=== PATIENT | male | born 1945 | race Caucasian/White ===

== ENCOUNTER → 2017-03-31 | Outpatient (CLI) | payer MEDICARE, BC | END | disposition home or self-care (01) | LOC: LABPAT 15:40 | PROVIDERS: ATTEND Orthopaedic Surgery | DX: Z01.812 Encounter for preprocedural laboratory examination (principal) | CPT/HCPCS: 87070 ==

== ENCOUNTER 2017-04-19 06:27 | Inpatient (IN) | payer MEDICARE, BC ==
[2017-04-11 16:15] VITALS: BMI 28.7
--- NOTE | 2017-04-18 12:24 | HP ---
DATE OF ADMISSION: CHIEF COMPLAINT: Left knee pain. HISTORY OF PRESENT ILLNESS: Patient is a 71-year-old retired male who presents with progressive left knee pain. He has had problems for several years worsening recently. She has tried medications along with previous injection with only partial temporary relief. He notes the pain limits his normal function and activities. PAST MEDICAL HISTORY: Significant for arthritis, hypertension, and heart disease. PAST SURGICAL HISTORY: Significant for right knee arthroscopy, partial thyroidectomy along with a coronary artery bypass graft. CURRENT MEDICATIONS: 1. Aleve. 2. Alprazolam. 3. Aspirin. 4. Cialis. 5. Enalapril. 6. Niaspan. 7. Prilosec. 8. Simvastatin. 9. Wellbutrin. 10. AndroGel. 11. Temazepam. 12. Tenormin. 13. Tramadol. He denies drug allergies. FAMILY HISTORY: Significant for cancer. SOCIAL HISTORY: Negative for current tobacco or alcohol use. A 16-point review of systems otherwise reviewed and is noncontributory. On examination, the patient is approximately 6 foot 3, 240 pounds of endomorphic habitus. HEENT exam is nonfocal. Neck is supple. He has painless passive motion of his left hip. Straight leg raise is negative. Active motion left knee -12 to 110 degrees of flexion. He is tender about the medial joint line and medial patellar facet. Active motion -12 to 110 degrees. Collaterals are stable, Karishma is negative, Heron's is equivocal. She has genu varum alignment. His distal neurovascular exam appears intact in the left lower extremity. Weight-bearing, notch, lateral, and merchant views of the left knee obtained in the office show severe medial and patellofemoral compartment narrowing. IMPRESSION: 1. Left knee severe tricompartmental osteoarthrosis. 2. Increased body mass index. RECOMMENDATIONS: I talked to the patient at length regarding his treatment options. At this point, he is quite symptomatic because of pain related to his osteoarthrosis despite conservative treatment. After thorough discussion, he opts to proceed with surgery. We will plan to proceed with left total knee arthroplasty. We will institute DVT prophylaxis postoperatively. The patient underwent preoperative medical evaluation by Dr. Wade and preoperative cardiac evaluation by Dr. Avina.
[~2017-04-19 06:27] MED LIST: ACETAMINOPHEN TAB 500 MG TAB PO ONE; DEXAMETHASONE SOD PHOSPHATE 10 MG/ML 1 ML VIAL IV ONE; HYDROmorphone 1 MG/ML 1 ML SYRINGE IVP PRN; MELOXICAM 7.5 MG TAB PO ONE; MIDAZOLAM 2 MG/2 ML VIAL IV PRN; ONDANSETRON 4 MG/2 ML VIAL IVP ONE; TRANEXAMIC ACID 1,000 MG in SODIUM CHLORIDE 0.9% 100 ML IVPB ONE; ceFAZolin 2 GM in SODIUM CHLORIDE 0.9% 100 ML IVPB ONE
[2017-04-19] MEDS: LACTATED RINGERS 1,000 ML IV SCH ×2 (07:02→12:13)
[2017-04-19] MEDS ORDERED: LIDOCAINE 1% 20 ML VIAL (10MG/ML) FOR IV START INTRADERMA ONE (07:03)
[2017-04-19] MEDS ORDERED: fentaNYL (PF) 50 MCG/ML 2 ML AMP IVP ONE (07:49)
[2017-04-19] MEDS ORDERED: ROPIVACAINE 246.25 MG, EPINEPHrine 0.5 MG, KETOROLAC 30 MG, cloNIDine HCL/PF 80 MCG, WA... MISCELLANE ONE ×5 (07:55)
[2017-04-19] MEDS ORDERED: PROPOFOL 10 MG/ML 20 ML VIAL IV ONE (08:09)
[2017-04-19] MEDS ORDERED: MIDAZOLAM 2 MG/2 ML VIAL ONE (08:09)
[2017-04-19] MEDS ORDERED: ROPIVACAINE 1,100 MG, SODIUM CHLORIDE 0.9% 330 ML MISCELLANE PRN ×2 (08:25)
--- NOTE | 2017-04-19 08:32 | P.ONQ ---
Anesthesiology Proc Note - PNB - Peripheral Nerve Block Performed Left Adductor Canal Infusion Time Out Performed: Yes Indication: Acute Post-Operative Pain, Analgesia Specifically requested for management of pain by : Jesus Nettles Sedation Type: Sedate with meaningful contact maintained Preparation: Sterile Prep Position: Supine Catheter Depth at Skin (cm): 6 Catheter: Indwelling Needle Types: Other (see comment) (Pa[employer] Language [employer]k E-Cath) Needle Size: 100mm (4") Needle Gauge: 21 Technique: Ultrasound Injectate: 0.5% Ropivacaine (see comment for volume) (20) Blood Aspirated: No Pain Paresthesia on Injection Noted: No Resistance on Injection: Normal Events: Uneventful and Well Tolerated
[2017-04-19] MEDS ORDERED: ceFAZolin 3,000 MG in SODIUM CHLORIDE 0.9% IRRIGATIO 3,000 ML IRRIGATION ONE (08:43)
[2017-04-19] MEDS ORDERED: LACTATED RINGERS 1,000 ML IV ONE (09:32)
[2017-04-19] MEDS ORDERED: HYDROmorphone 1 MG/ML 1 ML SYRINGE IVP PRN ×2 (10:07)
[2017-04-19] MEDS ORDERED: NALOXONE 0.4 MG/ML 1 ML VIAL IV PRN (10:07)
[2017-04-19] MEDS ORDERED: MAGNESIUM HYDROXIDE 2,400 MG/10 ML CUP PO PRN (10:07)
[2017-04-19] MEDS ORDERED: ONDANSETRON 4 MG/2 ML VIAL IVP PRN (10:07)
[2017-04-19] MEDS ORDERED: HYDROcodone/APAP 7.5-325MG 1 EACH TAB PO PRN (10:07)
[2017-04-19] MEDS ORDERED: ACETAMINOPHEN TAB 325 MG TAB PO PRN (10:07)
--- NOTE | 2017-04-19 10:49 | XR ---
EXAMINATION TYPE: XR knee limited LT DATE OF EXAM ORDERED: 04/19/2017 HISTORY: Postop arthroplasty. COMPARISON: None. FINDINGS: A left knee arthroplasty has been performed. Prosthetic elements appear in good position. One surgical drain is in place. There is subcutaneous and intra-articular air. IMPRESSION: STATUS POST LEFT ARTHROPLASTY.
--- NOTE | 2017-04-19 10:54 | P.OP ---
Date of Procedure: 04/19/17 Preoperative Diagnosis: Severe left knee tricompartmental osteoarthrosis-primary Postoperative Diagnosis: Same Procedure(s) Performed: Left total knee arthroplasty/Cemented/cruciate retaining Implants: Depuy Attune size 9 cemented femoral component, size 8 cemented tibial component , 9 mm articular surface, 38 mm cemented patellar component. This is a cruciate retaining implant. Anesthesia: regional, local, spinal Surgeon: Jesus Nettles Application Assistant #1: Gordon Anthony Estimated Blood Loss (ml): 50 Pathology: other (Bone fragments) Indications for Procedure: The patient is a 71-year-old gentleman who presents with progressive left knee pain secondary to osteoarthrosis despite conservative measures. A discussion of the risks and benefits of operative intervention versus continued conservative measures was made with patient. He opted to proceed with surgery. Operative risks to include infection, neurovascular injury, development of blood clots, possible component loosening, possible component failure and need for subsequent procedures was discussed. Informed consent was obtained. Operative Findings: As below Description of Procedure: The patient was brought to the operating room, and after induction of spinal anesthesia, the left lower extremity was prepped and draped in normal fashion. The limb was elevated to facilitate exsanguination. The tourniquet was inflated to 270 mm marker. A longitudinal incision extending 3 finger breaths above the superior pole of the patella extending to the the medial aspect the tibial tubercle was then made. The skin and subcutaneous tissues were divided sharply. Electrocautery was used for hemostasis. A medial parapatellar arthrotomy was performed. The medial soft tissues to include the superficial and deep portions of the medial collateral ligament was elevated subperiosteally. The posterior capsule was elevated posterior medially as well. The patella was everted. A portion of the retropatellar fat pad was excised sharply. The knee was flexed. The anterior cruciate ligament was sacrificed. Blunt retractors were placed. A starting hole was made in the distal femur 1 cm anterior to the posterior cruciate ligament origin. An intramedullary guide was gently inserted planning on 5 valgus distal cut with 9 mm distal resection. The cutting block was pinned in place. The distal cut was then made. The posterior referencing sizing guide was utilized. I felt size 9 was most appropriate. 3 of external rotation was built into the system and verified off the trans-epicondylar axis and the posterior condyles. The cutting block was pinned in place. The anterior, posterior, and chamfer cuts were then made. The bone fragments were removed. The notch guide was placed and the notch cut made. The size 9 trial femoral component was placed and was fully seated. There was good anterior to posterior and medial to lateral fit. The distal peg holes were drilled. The trial component was then removed. Attention was then paid towards preparing the proximal tibia. An extra medullary guide was utilized in line with the tibial shaft and second metatarsal distally. I planned on 2 mm resection from the medial compartment. 3 of posterior slope was planned. The cutting block was pinned in place. The posterior cruciate ligament was protected with a retractor. Proximal tibial cut was made in the bone removed in one fragment. The remnants of the medial and lateral menisci were excised at the capsular junction with electrocautery. The tibia sized most appropriately at size 8. The trial femoral and tibial components were placed along with a 9 mm articular surface. I was able to obtain full flexion and extension with good stability with varus and valgus stress. After several flexion and extension cycles, the tibial rotation was marked with electrocautery in line with the medial one third of the tibial tubercle. Attention was then paid towards preparing the patella. A patella reamer was utilized removing the appropriate amount of bone. The patella sized most appropriately at 38 mm per the peg holes were drilled. The trial components placed. The knee was taken through range of motion. I had good patellofemoral tracking with no hands technique. The trial components were then removed. The posterior osteophytes off the distal femur were carefully removed with a curved osteotome. The tibia was prepared in the appropriate rotation with appropriate drill and keel punch. Several additional drill holes were made in the proximal medial tibia to facilitate cement interdigitation. The bony surfaces were prepared with pulsatile lavage and dried. The flexion and extension gaps were checked and felt to be symmetric. The posterior soft tissues were injected with ropivacaine. The tibial component was cemented in placed and was fully seated. Excess cement was removed. The femoral component cemented placed and was fully seated. Excess cement was removed. The trial 9 mm articular surface was placed and the knee was put in full extension. The patella component was cemented in placed and was fully seated. After the cement had sufficiently hardened, the knee was again taken through range of motion. Again I was able to obtain full flexion and extension with good stability with varus and valgus stress. The trial articular surface was removed and the final 9 mm articular surface was placed. This was fully seated. Care was taken to avoid any soft tissue interposition. Pulsatile lavage was again utilized. The medial parapatellar arthrotomy was closed with # 2 Ethibond suture. A deep drain was placed exiting laterally. The tourniquet was deflated with approximately 75 minutes total tourniquet time. Final hemostasis was obtained with electrocautery and the second dose of IV TXA given. The subcutaneous tissues were reapproximated with interrupted 2-0 Vicryl sutures. The skin was reprepped with 3-0 subcuticular strata fix suture. Skin tape and adhesive was applied. A sterile dressing was applied. The patient was awoken from sedation and transferred to the recovery room in good condition. Blood loss was estimated 50 mL. No complications were incurred. Sponge and needle counts were correct at the end the case.
[2017-04-19] MEDS ORDERED: TEMAZEPAM 30 MG CAP PO PRN (16:20)
[2017-04-19] MEDS: ceFAZolin 2 GM in SODIUM CHLORIDE 0.9% 100 ML IVPB SCH (16:43)
[2017-04-19] MEDS: traMADol 50 MG TAB PO SCH ×3 (16:58→20:58)
[2017-04-19] MEDS: ATORVASTATIN 40 MG TAB PO SCH (17:19)
[2017-04-19] MEDS: DULoxetine HCL 60 MG CAPSULE.DR PO SCH (17:19)
[2017-04-19] MEDS: ALPRAZolam 0.5 MG TAB PO SCH (20:24)
[2017-04-19] MEDS: LISINOPRIL 20 MG TAB PO SCH (20:24)
[2017-04-19] MEDS ORDERED: SENNOSIDES-DOCUSATE SODIUM 1 EACH TAB PO SCH (21:00)
[2017-04-20] MEDS: ceFAZolin 2 GM in SODIUM CHLORIDE 0.9% 100 ML IVPB SCH (00:04)
[2017-04-20] MEDS: HYDROcodone/APAP 7.5-325MG 1 EACH TAB PO PRN ×3 (00:05→14:13)
[2017-04-20 01:00] VITALS: PULSE 59
[2017-04-20 06:34] LABS: Basophils % (A) 0 %; CH 32.2; CHCM 36.4; Eosinophils # (A) 0.1 k/uL (0-0.7); Eosinophils % (A) 1 %; HDW 2.69; HGB 12.3 gm/dL (13.0-17.5); Luc # (Auto) 0.17; Luc % (Auto) 2; Lymphocytes # (A) 1.1 k/uL (1.0-4.8); Lymphocytes % (A) 13 %; MCH 31.2 pg (25.0-35.0); MCHC 35.1 g/dL (31.0-37.0); MCV 88.9 fL (80.0-100.0); Mean Platelet Volume 7.8; Monocytes # (A) 0.8 k/uL (0-1.0); Monocytes % (A) 10 %; Neutrophils # (A) 6.2 k/uL (1.3-7.7); Neutrophils % (A) 74 %; RBC 3.94 m/uL (4.30-5.90); RDW 13.2 % (11.5-15.5); WBC 8.5 k/uL (3.8-10.6); WBC (Perox) 8.52
[2017-04-20 08:05] VITALS: BP 129/75; RESP 17; TEMP 97.9
[2017-04-20] MEDS ORDERED: ATENOLOL 50 MG TAB PO SCH (09:00)
[2017-04-20] MEDS ORDERED: FAMOTIDINE 20 MG TAB PO SCH (09:00)
[2017-04-20] MEDS ORDERED: FENOFIBRATE 160 MG TAB PO SCH (09:00)
[2017-04-20] MEDS ORDERED: RIVAROXABAN 10 MG TAB PO SCH (09:00)
--- NOTE | 2017-04-20 09:36 | P.PN ---
Progress Note - Text 0710 anesthesia POD 1. Wren is status post left TKR under spinal anesthesia with a left adductor canal catheter placed for postoperative pain relief. With 0.2% ropivacaine running at 8 mL per hour patient's VAS is 0, 2. Catheter site is intact clean and dry.
[2017-04-20] MEDS: ALPRAZolam 0.5 MG TAB PO SCH (09:50)
[2017-04-20] MEDS: DULoxetine HCL 60 MG CAPSULE.DR PO SCH (09:52)
[2017-04-20] MEDS: ATORVASTATIN 40 MG TAB PO SCH (09:52)
[2017-04-20] MEDS: LISINOPRIL 20 MG TAB PO SCH (09:54)
[2017-04-20] MEDS: traMADol 50 MG TAB PO SCH ×2 (09:58→12:55)
--- NOTE | 2017-04-20 12:46 | P.PN ---
Subjective Principal diagnosis: Status post left total knee arthroplasty Patient seen today resting in his hospital bed, he appears comfortable. His pain is well-controlled. Urinary catheters been discontinued. He denies any headaches, lightheadedness, chest pain or shortness of breath. Objective - Vital Signs Vital signs: Vital Signs Temp 97.9 F 04/20/17 08:00 Pulse 59 L 04/20/17 08:00 Resp 17 04/20/17 08:00 BP 129/75 04/20/17 08:00 Pulse Ox 96 04/20/17 08:00 Intake & Output 04/19/17 04/20/17 04/20/17 18:59 06:59 18:59 Intake Total 1701 950 240 Output Total 950 550 315 Balance 751 400 -75 Weight 104.326 kg Intake: IV 1701 Intake, IV Titration 450 Amount Lactated Ringers 1,000 ml 150 @ 50 mls/hr IV .Q20H SELAM Rx#:[id number] ceFAZolin 2 gm In Sodium 300 Chloride 0.9% 100 ml @ 100 mls/hr IVPB Q8HR SELAM Rx#:[id number] Oral 500 240 Output: Drainage 550 Left Knee 550 Urine 900 315 Uretheral (Hill) 200 Estimated Blood Loss 50 Other: Voiding Method Indwelling Catheter Indwelling Catheter Indwelling Catheter # Voids 1 - Exam Left lower extremity: Incisions clean, dry and intact. Calf is soft, no tenderness with palpation. Plantar flexion, dorsiflexion, EHL, FHL are intact. Sensory exam light touch throughout the extremities intact. Cap refills less than 2 seconds. - Labs CBC & Chem 7: 04/20/17 06:17 Labs: Abnormal Lab Results - Last 24 Hours (Table) 04/20/17 Range/Units 06:17 RBC 3.94 L (4.30-5.90) m/uL Hgb 12.3 L (13.0-17.5) gm/dL Hct 35.0 L (39.0-53.0) % Assessment and Plan Plan: Assessment: 1. Postop day #1 status post left total knee arthroplasty Plan: 1. Pain control, continue use of oral medication 2. Home therapy after discharge 3. Encourage incentive spirometer 4. Wound care was discussed with patient 5. GI and DVT prophylaxis, Xarelto 10 mg once a day 6. Medical recommendations 7. Discharge planning: Patient will be likely discharged home today Time with Patient: Less than 30
--- NOTE | 2017-04-20 12:49 | P.DS ---
Providers Date of admission: 04/19/17 06:27 Expected date of discharge: 04/20/17 Attending physician: Jesus Nettles Consults: 04/19/17 10:07 Consult Physician Routine Consulting Provider: Yonatan Silver Consult Reason/Comments: Medical Management Do you want consulting provider notified?: Already Contacted [facility] Course: Date of admission: 04/19/2017 Date of discharge: 04/20/2017 Admission diagnosis: Status post left total knee arthroplasty Discharge diagnosis: Same Attending physician: Dr. Nettles Surgical procedures: Left total knee arthroplasty Brief history: Patient is a 71-year-old male with a history of progressive primary left knee osteoarthritis. At this point patient has failed conservative treatment measures and has opted to proceed with a elective left total knee arthroplasty. Hospital course: Details of patient's surgery can be found in operative report. Patient tolerated the procedure well and was subsequently transported to orthopedic floor. Patient's orthopeidc and medical care was provided daily. Patient had daily laboratory tests performed for evaluation of overall blood counts. Patient had daily physical therapy to include strengthening range of motion as well as education with walker ambulation. Patient had daily CPM usage as part of their physical therapy program. Patient was treated with Xarelto for their postoperative DVT prophylaxis during their inpatient stay. Patient was noted to have a relatively uneventful postoperative course. Patient reported satisfactory pain control with oral pain medications by postoperative day 0. Patient showed satisfactory progress with physical therapy. Patient moved steadily through the program and had no difficulty meeting the goals by postoperative day 1. Given patient's otherwise satisfactory course and having met physical therapy goals, plan is to discharge patient home on postoperative day 1. Discharge condition/disposition: Patient will be discharged home in stable condition. Discharge medications: Instructions are given on resumption of patient's normal daily medications per primary care recommendation, in addition patient will be prescribed [place] 7.5mg/325mg, Tramadol 50mg, Colace 100mg, Pepcid 20mg, Xarelto 10mg. Discharge instructions: 1. Wound care and infection precautions, keep incision dry and covered while showering, no lotions, creams, moisturizers. No soaking, tubs, pools, hottubs. Do not scrub over the incision. 2. Weight-bear as tolerated with walker / cane until follow-up. 3. Ice and elevate when necessary. Do not exceed 20 minutes per hour with ice pack. 4. Utilize compression sleeve until seen at first follow up appointment. 5. Visiting nursing care. 6. Home physical therapy including home CPM. 7. Pain meds and anticoagulants per prescription. 8. Pain medication has potential to cause constipation. Increase oral fluid and fiber intake. Contact primary care provider if you have not had a bowel movement within 48 hours after discharge 9. No anti-inflammatory medication until discussed at first post operative visit, this including Motrin, Aleve, Mobic, Diclofenac, Aspirin. 10. Follow up in office at 2 weeks postop with Justo Anthony PA-C 11. Follow up with your primary care doctor 7-10 days after discharge. 12. Contact [facility] with any questions, . Procedures: Left total knee arthroplasty Patient Condition at Discharge: Good Plan - Discharge Summary New Discharge Prescriptions: New Rivaroxaban [Xarelto] 10 mg PO DAILY #12 tab Docusate [Colace] 100 mg PO DAILY #30 capsule Famotidine [Pepcid] 20 mg PO DAILY #30 tablet HYDROcodone/APAP 7.5-325MG [[place] 7.5] 1 - 2 each PO Q6HR PRN #60 tab PRN Reason: Pain traMADol HCl [Ultram] 50 mg PO Q6H PRN #40 tab PRN Reason: Pain Continue Rosuvastatin Calcium [Crestor] 20 mg PO DAILY Niacin [Niaspan] 1,000 mg PO DAILY Fenofibrate [Lofibra] 160 mg PO DAILY Testosterone [Androgel 1.62% Gel Pump] 1 applic TOPICAL DAILY Enalapril Maleate [Vasotec] 20 mg PO BID Atenolol [Tenormin] 50 mg PO QAM ALPRAZolam [Xanax] 0.5 mg PO BID Temazepam [Restoril] 30 mg PO HS PRN PRN Reason: sleep DULoxetine HCL [Cymbalta] 60 mg PO DAILY Discontinued Naproxen Sodium [Aleve] 220 mg PO BID PRN PRN Reason: Pain Discharge Medication List ALPRAZolam [Xanax] 0.5 mg PO BID 04/11/17 [History] Atenolol [Tenormin] 50 mg PO QAM 04/11/17 [History] Enalapril Maleate [Vasotec] 20 mg PO BID 04/11/17 [History] Fenofibrate [Lofibra] 160 mg PO DAILY 04/11/17 [History] Niacin [Niaspan] 1,000 mg PO DAILY 04/11/17 [History] Rosuvastatin Calcium [Crestor] 20 mg PO DAILY 04/11/17 [History] Temazepam [Restoril] 30 mg PO HS PRN 04/11/17 [History] Testosterone [Androgel 1.62% Gel Pump] 1 applic TOPICAL DAILY 04/11/17 [History] DULoxetine HCL [Cymbalta] 60 mg PO DAILY 04/19/17 [History] Rivaroxaban [Xarelto] 10 mg PO DAILY #12 tab 04/19/17 [Rx] Docusate [Colace] 100 mg PO DAILY #30 capsule 04/20/17 [Rx] Famotidine [Pepcid] 20 mg PO DAILY #30 tablet 04/20/17 [Rx] HYDROcodone/APAP 7.5-325MG [[place] 7.5] 1 - 2 each PO Q6HR PRN #60 tab 04/20/17 [ Rx] traMADol HCl [Ultram] 50 mg PO Q6H PRN #40 tab 04/20/17 [Rx] Follow up Appointment(s)/Referral(s): [facility], [NON-STAFF] - 1 Week Gordon Anthony PAC [PHYSICIAN [facility]UCKER] - 05/04/17 3:30 pm Lorenzo Contreras DO [Primary Care Provider] - 1 Week Ambulatory/Diagnostic Orders: Complete Blood Count w/diff [LAB.AMB] Time Frame: 3 Days, Location: Determined By Patient Patient Instructions/Handouts: Knee Replacement (DC) Activity/Diet/Wound Care/Special Instructions: pt currently has a CPM and walker at home. Orthopedic Discharge Instructions: 1. Wound care and infection precautions, keep incision dry and covered while showering, no lotions, creams, moisturizers. No soaking, pools, hot tubs. Do not scrub over incision. 2. Weight-bear as tolerated with walker / cane until follow-up. 3. Ice and elevate when necessary. Do not exceed 20 minutes per hour with ice pack. 4. Utilize compression sleeve until seen at first follow up appointment. 5. Visiting nursing care. 6. Home physical therapy including home CPM. 7. Pain meds and anticoagulants per prescription. 8. Pain medication has potential to cause constipation. Increase oral fluid and fiber intake. Contact primary care provider if you have not had a bowel movement within 48 hours after discharge. 9. No anti-inflammatory medication until discussed at first post operative visit, this including Motrin, Aleve, Mobic, Diclofenac. 10. Follow up in office at 2 weeks postop with Justo Anthony PA-C 11. Follow up with your primary care doctor 7-10 days after discharge. 12. Contact [facility] with any questions, . Discharge Disposition: HOME WITH HOME HEALTH SERVICES
--- NOTE | 2017-04-21 17:55 | CONS ---
REASON FOR CONSULTATION: Advice regarding hypertension, hyperlipidemia, requested by Orthopedic Surgery. HISTORY OF PRESENT ILLNESS: This 71-year-old gentleman with a past medical history of CAD, hypertension, hyperlipidemia, history of pneumonia, sleep apnea , history of CAD, CABG, being followed by Dr. Contreras in the outpatient setting, underwent left total knee arthroplasty. There is no history of any fever, rigor or chills. No history of headache, loss of consciousness, seizure, hematochezia, melena, chest pain, palpitations at this time. PAST MEDICAL HISTORY: 1. History of hypertension. 2. Hyperlipidemia. 3. History of pneumonia. 4. Sleep apnea. 5. History of CAD, CABG, cardiac catheterization. HOME MEDICATIONS: 1. Androgel 1 application daily. 2. Restoril 30 mg at bedtime p.r.n. 3. Crestor 20 mg p.o. daily. 4. Niasapn 1000 mg p.o. daily. 6. Lofibra 160 mg p.o. daily. 7. Vasotec 20 mg p.o. b.i.d. 8. Cymbalta 20 mg p.o. daily. 9. Tenormin 50 mg p.o. each morning. 10. Aspirin 81 mg daily. 11. Xanax 0.5 p.o. b.i.d. 12. Xarelto 10 mg p.o. daily. ALLERGIES: NONE. FAMILY HISTORY: History of hypertension, DJD, CABG in the family. SOCIAL HISTORY: No history of smoking. No history of alcohol. REVIEW OF SYSTEMS: ENT: No diminished hearing. No diminished vision. CARDIOVASCULAR: No angina, palpitations. RESPIRATORY: As mentioned earlier. GI: As mentioned earlier. : No dysuria, retention. NERVOUS SYSTEM: No numbness, weakness. ALLERGY/IMMUNOLOGY: No asthma, hayfever. HEMATOLOGY/ONCOLOGY: As mentioned earlier. ENDOCRINE: History of diabetes. CONSTITUTIONAL: As mentioned earlier. DERMATOLOGY: Negative. RHEUMATOLOGY: Negative. PSYCHIATRY: As mentioned earlier. PHYSICAL EXAM: Patient is alert and oriented x3. Pulse 59. Blood pressure is 132 /82, respiration 20, temperature normal. Pulse ox is 96% on room air. HEENT: Conjunctivae normal. Oral mucosa moist. NECK: No jugular venous distention. No carotid bruit. No lymph node enlargement. No thyroid enlargement. CARDIOVASCULAR: S1, S2 muffled. RESPIRATION: Breath sounds diminished at the bases. No rhonchi. No crackles. ABDOMEN: Soft, non-tender. No mass palpable. LEGS: Status post left knee arthroplasty. NERVOUS SYSTEM: Higher functions as mentioned earlier. Moves all 4 limbs. No focal motor or sensory deficit. LYMPHATICS: No lymph node palpable in neck, axillae or groin. SKIN: No ulcer, rash, bleeding. NEUROLOGY: No focal deficit. LABS: CBC, BMP within normal limits. ASSESSMENT: 1. Status post left total knee joint arthroplasty. 2. History of coronary artery disease. 3. Hypertension. 4. Hyperlipidemia. 5. History of pneumonia. 6. History of varicose veins. 7. History of goiter. 8. Hypothyroidism. 9. History of coronary artery disease, coronary artery bypass grafting. 10. History of anxiety, depression not otherwise specified. 11. FULL CODE. RECOMMENDATIONS AND DISCUSSION: In this 71-year-old gentleman who presented with multiple complex medical issues, we will monitor the patient closely, continue the current medications, continue with symptomatic treatment. I recommend labs, DVT prophylaxis, resume the home medications. Symptomatic treatment of the pain. Further recommendations to follow. MTDD
--- NOTE | 2017-04-23 10:06 | PN ---
DATE OF SERVICE: 04/20/2017 This 79 year old gentleman who was admitted with left total knee arthroplasty improved significantly. No chest pain. No palpitations. No fever. The patient was able to ambulate. On examination, alert and oriented times three. Pulse 59. Blood pressure 120/ 74. Respiratory rate 20. Temperature 97.7. Pulse ox 97% on room air. HEENT: Conjunctivae normal. NECK: No JVD. CARDIOVASCULAR: S1, S2 muffled. RESPIRATORY: Breath sounds diminished at the bases. No rhonchi. No crackles. ABDOMEN: soft, nontender. LEGS: Status post left knee arthroplasty. NERVOUS SYSTEM: No focal deficits. LABS: WBC 8.7, hemoglobin 12.7. ASSESSMENT: 1. Status post left total knee arthroplasty. 2. Anemia, normocytic, possible dilutional. 3. History of coronary artery disease. 4. History of hypertension. 5. Hyperlipidemia. 6. Sleep apnea. 7. History of coronary artery disease, coronary artery bypass grafting. 8. Anxiety, depression, not otherwise specified. 9. FUL L CODE. RECOMMENDATIONS: This 71 year old gentleman presented with multiple medical issues. At this time, I would recommend to continue current medications. Continue with symptomatic treatment. Continue monitor blood sugars closely. Otherwise, continue the home medications. The patient is being discharged home , I would recommend follow up closely with primary care physician in the outpatient setting. Otherwise, the rest of the recommendations per orthopedic surgery. See orders for further details. MTDD
== END 2017-04-20 15:14 | disposition home health service (06) | DRG 470 ==
LOC: 2ORMAIN 06:27 → 3SUR 10:34
PROVIDERS: ADMIT Orthopaedic Surgery; ATTEND Orthopaedic Surgery
PROC: 0SRD0J9 Replacement of Left Knee Joint with Synthetic Substitute, Cemented, Open Approach (ICD-10-PCS; principal; 2017-04-19 08:00)
DX: M17.12 Unilateral primary osteoarthritis, left knee (principal); I10 Essential (primary) hypertension; E03.9 Hypothyroidism, unspecified; E78.5 Hyperlipidemia, unspecified; G47.30 Sleep apnea, unspecified; I25.10 Atherosclerotic heart disease of native coronary artery without angina pectoris; M21.162 Varus deformity, not elsewhere classified, left knee; Z79.01 Long term (current) use of anticoagulants; Z79.82 Long term (current) use of aspirin; Z79.899 Other long term (current) drug therapy; Z82.49 Family history of ischemic heart disease and other diseases of the circulatory system; Z87.01 Personal history of pneumonia (recurrent); Z95.1 Presence of aortocoronary bypass graft
CPT/HCPCS: 85025; 88300

== ENCOUNTER → 2018-06-22 | Outpatient (CLI) | payer MEDICARE, BC ==
--- NOTE | 2018-06-22 12:37 | SFUN ---
SLEEP CENTER FOLLOW UP NOTE DATE OF SERVICE: 06/22/2018 A 72-year-old gentleman has been followed in the sleep center for treatment of obstructive sleep apnea-hypopnea syndrome. Presently, patient is on treatment with CPAP and he is using equipment every night for the whole night. He increased his weight around 12 pounds since previous visit and feels that pressure may not be enough for him now. He also has jerking movements at night. I reviewed his previous CPAP titration and it showed extremely severe periodic limb movements of 156 per hour, but with small amount of microarousals related to limb movements. Patient sometimes feels sleepy during the day. [place] Sleepiness Scale increased to 13. I checked his CPAP unit. CPAP pressure is 10 cm of water. Usage is 29 out of 30 nights for more than 4 hours. Average usage is around 7.9 hours. MEDICATIONS: Cialis, Vasotec, Tenormin, Crestor, TriCor, Niaspan, Prilosec, Restoril, Cymbalta, Xanax, AndroGel, aspirin. The patient also takes medication for the leg movements. He does not remember the name. PHYSICAL EXAMINATION: During physical exam, patient in no distress. VITAL SIGNS: BP 136/89, HR 60, RR 16, height 6 feet 0 inches, weight 246, BMI 33.3. Neck 18 inches in circumference. Temperature 98.5. Oxygen saturation in room air 98%. HEENT: PERRLA, EOMI. Oropharynx low position of soft palate. NECK: Supple, no JVD. Thyroid is not palpable. LUNGS: Clear to percussion and to auscultation. Good air exchange. No wheezing or rhonchi. HEART: S1, S2 regular. No murmurs, gallops, or rubs. ABDOMEN: Soft and nontender. Bowel sounds are present. No organomegaly appreciated. EXTREMITIES: Some distention of the veins on the low legs. SALESPERSON RECREATIONAL VEHICLES: Awake, alert, and oriented X3. Cranial nerves 2 to 7 intact. There is no fasciculation or atrophy. noted. No focal deficits observed. IMPRESSION: 1. Obstructive sleep apnea-hypopnea syndrome. Patient demonstrated great compliance with treatment, benefitting from treatment. 2. Patient increased his weight on 12 pounds since titration. Possibility that pressure in the machine is not enough for him machine does not have option to check apnea-hypopnea index. 3. Extremely severe periodic limb movements during last CPAP titration. The patient continued to have jerking movements at night, presently was started on a new medication for leg movement by his primary care physician. 4. Coronary artery disease, status post coronary artery bypass grafting. 5. Hypertension. 6. Status post total left knee replacement. 7. Hyperlipidemia. 8. Acid reflux. 9. History of anxiety. PLAN: 1. I increased pressure in his CPAP unit to 11 cm of water. 2. Patient should be treated with agonist Requip or Mirapex, smallest dose at bedtime. 3. Please check iron profile including ferritin level. Low level of iron could be related with developing periodic limb movements. 4. No driving if feeling any sleepiness. 5. Followup visit in 3 to 4 months. Thank you very much for allowing me to participate in management of your patient. Sincerely, Tal Perez MD, PhD, FAASM Diplomat of [place] [employer] Specialties [place] [employer] Medicine Lawn Care Worker of [facility] [place] MMODL / TAIWON: [id number] /
== END | disposition home or self-care (01) ==
LOC: SLEEP 10:42
PROVIDERS: ATTEND Internal Medicine
DX: G47.33 Obstructive sleep apnea (adult) (pediatric) (principal); I25.10 Atherosclerotic heart disease of native coronary artery without angina pectoris; I10 Essential (primary) hypertension; E78.5 Hyperlipidemia, unspecified; K21.9 Gastro-esophageal reflux disease without esophagitis; F41.9 Anxiety disorder, unspecified; Z95.5 Presence of coronary angioplasty implant and graft; Z99.89 Dependence on other enabling machines and devices; Z79.899 Other long term (current) drug therapy; Z79.82 Long term (current) use of aspirin

== ENCOUNTER → 2018-07-07 | Outpatient (CLI) | payer MEDICARE, BC ==
--- NOTE | 2018-07-10 00:36 | MR ---
EXAMINATION TYPE: MR ankle LT wo con DATE OF EXAM: 07/07/2018 COMPARISON: NONE HISTORY: 72-year-old female Pain in left ankle TECHNIQUE: Multiplanar, multisequence images of the left ankle were obtained without IV contrast. FINDINGS: Evaluation of the osseous structures shows no bone marrow edema or acute fracture. Subtalar joint is aligned and talar dome is intact. There is mild degenerative subchondral marrow signal change at the navicular lateral cuneiform joint. Small ankle joint effusion. There is moderate thickening of the middle third Achilles tendon with an AP diameter of 1.7 cm. There is mild adjacent soft tissue swelling and an irregular partial tear involving the mid to medial ante rior fibers measuring 9 mm thick and 1.6 cm long. Some additional small areas of interstitial tearing are present. Origin of the plantar fascia is intact. Normal signal in the sinus tarsi. The tarsal tunnel is clear. Anterior extensor tendons are satisfactory. The syndesmosis is intact. Inframalleolar peroneus brevis shows a possible split tear extending from just above the peroneal tub ercle, axial series 401 image 17 for a length of about 3 cm. Mild tenosynovial fluid along the perone al tendons. The lateral ligamentous complex appears intact. There is edematous change within the visualized lower muscle belly of the flexor hallucis longus. The medial flexor tendons themselves appear intact as does the deltoid spring ligament complex. Mild subcutaneous soft tissue swelling. IMPRESSION: 1. Moderate Achilles tendinosis particularly along the middle third segment where an anterior sided p artial tear is present involving the mid to medial third fibers and involving just over half of the t endon thickness. The partial tear measures 1.6 cm long. 2. Possible split tear of the inframalleolar peroneus brevis extending from just above the peroneal t ubercle for a length of 3 cm. 3. Mild midfoot OA. 4. Edematous change within the visualized lower muscle belly of the flexor hallucis longus could be r eactive to altered biomechanics or could represent muscle strain.
== END | disposition home or self-care (01) ==
LOC: RADMRIMAIN 08:43
PROVIDERS: ATTEND Orthopaedic Surgery
DX: S86.012A Strain of left Achilles tendon, initial encounter (principal); M19.072 Primary osteoarthritis, left ankle and foot

== ENCOUNTER → 2018-10-05 | Outpatient (CLI) | payer MEDICARE, BC ==
--- NOTE | 2018-10-05 15:57 | PN ---
PROGRESS NOTE DATE OF SERVICE: 10/05/2018 This patient is a 72-year-old gentleman who has been followed in the sleep center for treatment of obstructive sleep apnea-hypopnea syndrome. During his previous visit, I increased his CPAP pressure from 10 cm of water up to 11 cm of water. At present patient does not snore with the machine. [place] Sleepiness Scale has decreased to 9 from 13 at the previous visit. I checked patient's CPAP unit. CPAP pressure is 11 cm of water. Pressure started from 8.5 cm of water. Usage is 28/30 nights for more than 4 hours. Average usage is 8.3 hours per night. The machine does not have information about apnea-hypopnea index. MEDICATIONS: 1. Vasotec. 2. Cialis. 3. Tenormin. 4. Crestor. 5. Tricor. 6. Niaspan. 7. Prilosec. 8. Restoril. 9. Cymbalta. 10.Xanax. 11.AndroGel. 12.Aspirin. PHYSICAL EXAMINATION: GENERAL: A pleasant patient in no distress. VITAL SIGNS: BP 133/81, HR 58, R 16 height 6 feet 0 inches, weight 244.8, which is 2 pounds less than during his previous visit, temperature 97.9, oxygen saturation at room air 96%. HEENT: PERRLA, EOMI. Evaluation of oropharynx showed tongue protrudes midline. Low position of soft palate. NECK: Supple. No JVD. Thyroid is not palpable. LUNGS: Clear to percussion and to auscultation. Good air exchange. No wheezing or rhonchi. HEART: S1, S2 regular. No murmurs, gallops or rubs. ABDOMEN: Soft and nontender. Bowel sounds are present. No organomegaly. EXTREMITIES: Distention of veins in the lower legs. MOLD SETTER: Awake, alert, and oriented X3. Cranial nerves 2 to 7 intact. There is no fasciculation or atrophy. noted. No focal deficits observed. IMPRESSION: 1. Obstructive sleep apnea-hypopnea syndrome. Patient has demonstrated great compliance with treatment, benefitting from treatment. 2. Coronary artery disease, status post coronary artery bypass grafting. 3. Hypertension. 4. History of periodic limb movements in sleep during titration. 5. Status post total left knee replacement. 6. Hyperlipidemia. 7. Acid reflux. 8. History of anxiety. PLAN: 1. Patient will continue treatment with CPAP every night for the whole night. 2. We will check with [facility] equipment [email or web address] about possibility of replacing CPAP unit with a new unit which has information about apnea-hypopnea index. 3. Watching and losing weight. 4. Sleep hygiene with regular time in bed for at least 8 hours. 5. No driving if feeling any sleepiness. Thank you very much for allowing me to participate in the management of your patient. Sincerely, Tal Perez MD, PhD, FAASM Diplomat of [place] [employer] [place] [employer] Freight Delivery Driver of [facility] [place] MMODL / IJN: [id number] /
== END | disposition home or self-care (01) ==
LOC: SLEEP 13:42
PROVIDERS: ATTEND Internal Medicine
DX: G47.33 Obstructive sleep apnea (adult) (pediatric) (principal); I25.10 Atherosclerotic heart disease of native coronary artery without angina pectoris; I10 Essential (primary) hypertension; E78.5 Hyperlipidemia, unspecified; K21.9 Gastro-esophageal reflux disease without esophagitis; Z86.69 Personal history of other diseases of the nervous system and sense organs; Z86.59 Personal history of other mental and behavioral disorders; Z99.89 Dependence on other enabling machines and devices; Z95.1 Presence of aortocoronary bypass graft; Z79.82 Long term (current) use of aspirin; Z79.899 Other long term (current) drug therapy

== ENCOUNTER → 2018-12-22 | Outpatient (CLI) | payer MEDICARE, BC ==
--- NOTE | 2018-12-22 13:13 | MR ---
EXAMINATION TYPE: MR knee RT wo con DATE OF EXAM: 12/22/2018 COMPARISON: Plain film 12/15/2018 HISTORY: Right knee pain TECHNIQUE: Multiplanar, multisequence imaging of the right knee is performed without IV contrast. FINDINGS: MEDIAL MENISCUS: There is a tear of the posterior horn the medial meniscus LATERAL MENISCUS: Lateral meniscus is not identified at the posterior horn level, M.D. space is noted CRUCIATE LIGAMENTS: The distribution anterior cruciate ligament there is increased signal suggestive of strain or partial tear, posterior cruciate ligament intact COLLATERAL LIGAMENTS: The medial collateral ligament and lateral collateral ligament complex are inta ct and unremarkable. EXTENSOR MECHANISM: Visualized quadriceps and patellar tendons are intact. EFFUSION: Suprapatellar joint effusion is present. There are free fragments within the posterior kne e joint one of which measures 6 to 7 mm and the second measures approximately 7 mm. POPLITEAL CYST: No popliteal/sanderson cyst. TRICOMPARTMENT SPACES: There is loss of the joint space tricompartmentally with marginal spurring is noted on plain film CARTILAGE: Grade IV chondromalacia posterior patella, grade III chondromalacia medial compartment, gr ander IV chondromalacia lateral compartment BONE MARROW SIGNAL: No focal abnormal marrow signal is appreciated. OTHER: Varicosities are noted in the soft tissues anterior to the joint in the medial aspect extendi ng to the midline. The area margin of the patellar tendon IMPRESSION: Osteoarthritis. Tear of the posterior horn of the lateral meniscus, the meniscus. Loose bodies within the joint. Additional findings above.
== END | disposition home or self-care (01) ==
LOC: RADMRIMAIN 07:59
PROVIDERS: ATTEND Orthopaedic Surgery
DX: S83.281A Other tear of lateral meniscus, current injury, right knee, initial encounter (principal); M17.11 Unilateral primary osteoarthritis, right knee; M22.41 Chondromalacia patellae, right knee

== ENCOUNTER → 2019-02-23 | Day surgery (SDC) | payer MEDICARE, BC ==
[2019-02-21 15:53] VITALS: BMI 30.8
--- NOTE | 2019-02-22 11:49 | HP ---
HISTORY AND PHYSICAL CHIEF COMPLAINT: Right knee pain. HISTORY OF PRESENT ILLNESS: Patient is a 73-year-old retired gentleman who presents with progressive right knee pain for the past year or so. He notes pain that increases with certain movements. He notes intermittent swelling and locking. He has tried medications and an injection with only partial temporary relief. He notes his pain limits his normal function and activities. PAST MEDICAL HISTORY: Significant for arthritis, hypertension and heart disease. PAST SURGICAL HISTORY: Significant for bilateral knee arthroscopy in addition to previous CABG. CURRENT MEDICATIONS: 1. Aspirin. 2. Alprazolam. 3. Cialis. 4. Enalapril. 5. Prilosec. 6. Simvastatin. 7. Wellbutrin. 8. AndroGel. 9. Temazepam. 10.Tenormin. He denies drug allergies. FAMILY HISTORY: Significant for cancer. SOCIAL HISTORY: Negative for current tobacco or alcohol use. REVIEW OF SYSTEMS: A 16 point review of systems otherwise reviewed and is noncontributory. PHYSICAL EXAMINATION: On examination, the patient is approximately 6 foot 2, 225 pounds of endomorphic habitus. HEENT exam is nonfocal. Neck is supple. He has painless passive motion of the right hip. Straight leg raise is negative, active motion right knee -8 to 120 degrees of flexion. He has a mild effusion. He is tender about the medial, greater and lateral joint line. Collaterals are stable, Karishma is negative, Heron's elicits medial pain. He has genu valgum alignment. His distal neurovascular appears intact in the right lower extremity. MRI report 12/22/2018 of the right knee shows a posterior medial meniscal tear in addition to lateral greater than medial compartment osteoarthrosis. IMPRESSION: 1. Right knee internal derangement with symptomatic medial meniscal tear. 2. Right knee moderate lateral and patellofemoral compartment osteoarthrosis. RECOMMENDATIONS: I talked to the patient at length regarding his condition and treatment options. At this point, he is having significant pain and mechanical symptoms, despite conservative measures. After thorough discussion, he opts to proceed with surgery. Will plan to proceed with arthroscopic evaluation with possible partial medial meniscectomy. Will likely perform that as an outpatient procedure. MMODL / IJN: [id number] /
[~2019-02-23] MED LIST changes: -ACETAMINOPHEN TAB 500 MG TAB PO ONE; +EPINEPHrine (PF) 1 ML in SODIUM CHLORIDE 0.9% IRRIGATIO 3,000 ML IRRIGATION ONE; +HYDROmorphone (PF) 1 MG/ML ONE; +HYDROmorphone 0.5 MG/0.5 ML SYRINGE IVP PRN; -HYDROmorphone 1 MG/ML 1 ML SYRINGE IVP PRN; +KETOROLAC 30 MG/ML 1 ML VIAL ONE; +LACTATED RINGERS 1,000 ML IV SCH; +LIDOCAINE 1% INJ 10MG/ML (20 ML MDV) ONE; -MELOXICAM 7.5 MG TAB PO ONE; +MIDAZOLAM 2 MG/2 ML VIAL ONE; +PROPOFOL 10 MG/ML 20 ML VIAL IV ONE; +SUCCINYLCHOLINE CHLORIDE 100 MG/5 ML SYR IV ONE; -TRANEXAMIC ACID 1,000 MG in SODIUM CHLORIDE 0.9% 100 ML IVPB ONE; -ceFAZolin 2 GM in SODIUM CHLORIDE 0.9% 100 ML IVPB ONE; +fentaNYL (PF) 50 MCG/ML 2 ML AMP ONE
[2019-02-23 07:11] VITALS: RESP 16
[2019-02-23] MEDS: ceFAZolin IN SWFI 2 GM/20 ML SYRINGE IVP ONE ×2 (07:54→08:10)
--- NOTE | 2019-02-23 08:51 | P.OP ---
Date of Procedure: 02/23/19 Preoperative Diagnosis: Right knee internal derangement Postoperative Diagnosis: Right knee posterior medial meniscal tear/grade 2 chondral injury distal medial femoral condyle/chondrocalcinosis with significant synovitis Procedure(s) Performed: Right knee arthroscopic partial medial meniscectomy/medial femoral chondrectomy/synovectomy of the medial, lateral, and patellofemoral compartments Anesthesia: GETA Surgeon: Jesus Nettles Estimated Blood Loss (ml): 10 Pathology: none sent Condition: stable Disposition: PACU Indications for Procedure: The patient's a 73-year-old male presents with progressive right knee pain and mechanical symptoms despite conservative measures. A discussion of the risks and benefits of operative intervention versus continued conservative measures was made with the patient. He opted to proceed with surgery. Operative risks to include infection, neurovascular injury, development of blood clots, possible incomplete resolution of symptoms, possible worsening symptoms and need for subsequent procedures was discussed. Informed consent was obtained. Operative Findings: As below Description of Procedure: The patient was brought to the operating room, and after induction of general a nesthesia examined the right knee. Collaterals were stable, Karishma was negative, and posterior drawer was negative. The right lower extremity was prepped and draped in a normal fashion. A superior lateral portal was made through a 3 mm skin incision superior and lateral to the patella. This was used for outflow. A lateral portal was made through a 5 mm vertical skin incision lateral to the patella tendon above the joint line. Diagnostic arthroscopy was performed. On inspection of the medial compartment an oblique tear involving the posterior horn of the medial meniscus was noted. This was debrided back to stable base with straight baskets and a motorized shaver. There was chondrocalcinosis present and significant reactive synovitis. A grade 2 chondral injury involving the distal medial portion medial femoral condyle was noted with a loose chondral fragment. This was debrided back to a stable base with a motorized shaver. The reactive synovitis was debrided with a motorized shaver including the anterior medial, lateral, and patellofemoral compartments On inspection of the notch, the anterior cruciate ligament appeared to be intact. On inspection of the lateral compartment grade 3 chondral changes were noted diffusely. On inspection of the patellofemoral articulation grade 2-3 chondral changes were noted diffusely. The gutters were clear debris. The knee was then thoroughly irrigated. The portals were closed with Steri-Strips. A sterile dressing was applied in addition to a compression stocking. The patient was awoken from general anesthesia and transferred to recovery room in good condition. Blood loss was estimated at 10 mL. No complications were incurred.
[2019-02-23 08:54] VITALS: TEMP 97.3
[2019-02-23 09:46] VITALS: BP 143/88; PULSE 58
== END | disposition home or self-care (01) ==
LOC: OR 06:48
PROVIDERS: ATTEND Orthopaedic Surgery
DX: S83.241A Other tear of medial meniscus, current injury, right knee, initial encounter (principal); S83.31XA Tear of articular cartilage of right knee, current, initial encounter; X58.XXXA Exposure to other specified factors, initial encounter; M11.261 Other chondrocalcinosis, right knee; M65.9 Synovitis and tenosynovitis, unspecified; I25.10 Atherosclerotic heart disease of native coronary artery without angina pectoris; I11.9 Hypertensive heart disease without heart failure; M19.90 Unspecified osteoarthritis, unspecified site; Z95.1 Presence of aortocoronary bypass graft; I35.1 Nonrheumatic aortic (valve) insufficiency; G47.33 Obstructive sleep apnea (adult) (pediatric); Z99.89 Dependence on other enabling machines and devices; F41.9 Anxiety disorder, unspecified; F32.9 Major depressive disorder, single episode, unspecified; Z79.82 Long term (current) use of aspirin; Z79.890 Hormone replacement therapy; Z79.899 Other long term (current) drug therapy
CPT/HCPCS: 29881; J2250; J0171; J2001; J3010; J1885; J1170; J0330; J2704; J0690

== ENCOUNTER → 2019-04-12 | Outpatient (CLI) | payer MEDICARE, BC ==
--- NOTE | 2019-04-12 16:17 | PN ---
PROGRESS NOTE DATE OF SERVICE: 04/12/2019 This patient is a 73-year-old gentleman who has been followed in Sleep Center for treatment of obstructive sleep apnea-hypopnea syndrome. Recently the patient received a new CPAP unit, and this is his first visit after receiving the new machine. The patient is able to use his new CPAP equipment every night for the whole night without significant problems related to mask fitting, pressure or humidification. I checked his CPAP unit. Range of the pressure is 8 to 13 cm of water. Most of the time pressure is in the range of 11.2 cm of water. Leak is only 5 L/minute, which is perfect. Usage is 29/30 nights for more than 4 hours, average 7.9 hours per night, which is perfect. Apnea-hypopnea index is only 0.6; great. [place] Sleepiness Scale today is 8. MEDICATIONS: 1. Cialis. 2. Vasotec. 3. Tenormin. 4. Crestor. 5. TriCor. 6. Niaspan. 7. Prilosec. 8. Restoril. 9. Cymbalta. 10.Xanax. 11.AndroGel. 12.Aspirin. PHYSICAL EXAMINATION: GENERAL: A pleasant patient in no distress. VITAL SIGNS: BP 121/71, HR 62, RR 16, weight 247, temperature 97.5, oxygen saturation at room air 93%. HEENT: PERRLA, EOMI. Evaluation of oropharynx showed tongue protrudes midline. Low position of soft palate. NECK: Supple. No JVD. Thyroid is not palpable. LUNGS: Clear to percussion and to auscultation. Good air exchange. No wheezing or rhonchi. HEART: S1, S2 regular. No murmurs, gallops or rubs. ABDOMEN: Soft and nontender. Bowel sounds are present. No organomegaly. EXTREMITIES: No clubbing or cyanosis. GROUNDS FOREMAN: Awake, alert, and oriented X3. Cranial nerves 2 to 7 intact. There is no fasciculation or atrophy. noted. No focal deficits observed. IMPRESSION: 1. Obstructive sleep apnea-hypopnea syndrome. Patient has demonstrated great compliance with treatment, benefitting from treatment. Normal respiration on CPAP. 2. Hypertension. 3. Coronary artery disease, status post coronary artery bypass grafting. 4. Status post total left knee replacement. 5. Hyperlipidemia. 6. Acid reflux. 7. History of anxiety. PLAN: 1. Patient will continue to use CPAP equipment every night for the whole night. 2. Losing weight. 3. Sleep hygiene with regular time in bed for at least 8 hours. 4. No driving if feeling any sleepiness. 5. We will maintain all necessary prescriptions for CPAP, including mask, tube, filters. 6. Follow-up visit in one year or earlier if patient has any problems. Thank you very much for allowing me to participate in the management of your patient. Sincerely, Tal Perez MD, PhD, FAASM Diplomat of [place] [employer] [place] [employer] Ac[employer]ylene Gas Compressor of [facility] [place] MMODL / IJN: [id number] /
== END ==
LOC: SLEEP 13:07
PROVIDERS: ATTEND Internal Medicine
DX: G47.33 Obstructive sleep apnea (adult) (pediatric) (principal); I10 Essential (primary) hypertension; I25.10 Atherosclerotic heart disease of native coronary artery without angina pectoris; E78.5 Hyperlipidemia, unspecified; K21.9 Gastro-esophageal reflux disease without esophagitis; F41.9 Anxiety disorder, unspecified; Z99.89 Dependence on other enabling machines and devices; Z96.652 Presence of left artificial knee joint; Z95.1 Presence of aortocoronary bypass graft; Z79.899 Other long term (current) drug therapy; Z79.82 Long term (current) use of aspirin

== ENCOUNTER → 2021-04-27 | Outpatient (CLI) | payer BC, MEDICARE | END | disposition home or self-care (01) | CPT/HCPCS: 82565; 84520; 71275; 36415; Q9967 ==

== ENCOUNTER → 2022-05-12 | Outpatient (CLI) | payer MEDICARE ==
--- NOTE | 2022-05-12 16:36 | CT ---
EXAMINATION TYPE: CT chest w con DATE OF EXAM: 05/12/2022 COMPARISON: CT chest 10/30/2021 HISTORY: abnormal lung sorensen CT DLP: 622.9 mGycm Automated exposure control for dose reduction was used. CONTRAST: CT scan of the chest is performed with IV Contrast, patient injected with 70 mL of Isovue 300. FINDINGS: LUNGS: The lungs show too numerous to count lung nodules bilaterally, nodules seen are similar to max or exam, miliary pattern somewhat better seen on today's exam possibly due to differences in techniqu e, difficult to exclude progression. There is no pleural effusion or pneumothorax seen. The trache obronchial tree is patent. MEDIASTINUM: There are no greater than 1 cm hilar or mediastinal lymph nodes. No pericardial effusi on is seen. Patient is post median sternotomy. There are coronary artery calcifications. AORTA: Ascending aorta is borderline aneurysmal at 4.1 cm. Aortic root is 4.2 cm. OTHER: No additional significant abnormality is seen. IMPRESSION: Relate for possible granulomatous disease both infectious and noninfectious, tuberculosi s not excluded but felt less likely, metastatic disease within the differential but also felt less li rona.
== END | disposition home or self-care (01) ==
LOC: RADCTMAIN 12:38
PROVIDERS: ATTEND Internal Medicine Critical Care Medicine
DX: R91.8 Other nonspecific abnormal finding of lung field (principal)
CPT/HCPCS: 82565; 84520; 71260; 36415; Q9967

== ENCOUNTER 2022-10-06 17:20 | Inpatient (IN) | payer MEDICARE ==
[2022-10-06 18:26] LABS: Basophils % (A) 1 %; Eosinophils # (A) 0.4 k/uL (0-0.7); Eosinophils % (A) 7 %; HCT 40.9 % (39.0-53.0); Lymphocytes # (A) 0.8 k/uL (1.0-4.8); Lymphocytes % (A) 15 %; MCH 29.3 pg (25.0-35.0); MCHC 34.1 g/dL (31.0-37.0); MCV 85.8 fL (80.0-100.0); Mean Platelet Volume 8.6; Monocytes # (A) 0.5 k/uL (0-1.0); Monocytes % (A) 9 %; Neutrophils # (A) 3.5 k/uL (1.3-7.7); Neutrophils % (A) 65 %; Platelet Count 198 k/uL (150-450); RBC 4.77 m/uL (4.30-5.90); RDW 13.6 % (11.5-15.5); WBC 5.4 k/uL (3.8-10.6)
[2022-10-06 18:31] LABS: Albumin 4.4 g/dL (3.5-5.0); Calcium 9.2 mg/dL (8.4-10.2); Total Bilirubin 0.5 mg/dL (0.2-1.3); Total Protein 7.6 g/dL (6.3-8.2)
[2022-10-06 18:43] LABS: INR 1.1 (<1.2); Prothrombin Time 11.3 sec (9.0-12.0)
--- NOTE | 2022-10-06 18:47 | XR ---
EXAMINATION TYPE: XR chest 2V DATE OF EXAM: 10/06/2022 6:23 PM COMPARISON: Chest radiographs from CTs 05/12/2022 TECHNIQUE: XR chest 2V Frontal and lateral views of the chest. CLINICAL INDICATION:Male, 76 years old with history of pain; FINDINGS: Lungs/Pleura: Scattered subtle reticular and hazy opacities. No evidence of pneumothorax, focal conso lidation or pleural effusion. Pulmonary vascularity: Unremarkable. Heart/mediastinum: Cardiomediastinal silhouette is enlarged and stable. . Musculoskeletal: No acute osseous pathology. Midline sternotomy wires are noted. IMPRESSION: Bilateral lower lobe airspace opacities and scattered reticular and hazy opacities correlate for atyp ical pneumonia
--- NOTE | 2022-10-06 22:15 | US ---
EXAMINATION TYPE: US venous doppler duplex LE DATE OF EXAM: 10/06/2022 8:17 PM COMPARISON: NONE CLINICAL HISTORY: leg swelling. bilateral calf swelling. No hx of DVT. Takes baby aspirin daily SIDE PERFORMED: Bilateral TECHNIQUE: The lower extremity deep venous system is examined utilizing real time linear array sonog christal with graded compression, doppler sonography and color-flow sonography. VESSELS IMAGED: Common Femoral Vein Deep Femoral Vein Greater Saphenous Vein * Femoral Vein Popliteal Vein Small Saphenous Vein * Proximal Calf Veins (* superficial vessels) Right Leg: No evidence of DVT. Edema noted in calf Left Leg: No evidence of DVT. Edema noted in calf Grayscale, color doppler, spectral doppler imaging performed of the deep veins of the bilateral lower extremities. There is normal flow, compressibility, vascular waveforms. IMPRESSION: No evidence of acute DVT in either lower extremity. [id number] distal subcutaneous edema is noted.
[2022-10-06] MEDS ORDERED: AZITHROMYCIN 500 MG in SODIUM CHLORIDE 0.9% 250 ML IVPB STA (22:16)
[2022-10-06] MEDS ORDERED: IPRATROPIUM-ALBUTEROL 3 ML NEB INHALATION STA (22:22)
--- NOTE | 2022-10-06 22:22 | ED ---
General Adult HPI - General Chief complaint: Recheck/Abnormal Lab/Rx Stated complaint: SOB, Atrial Fib Time Seen by Provider: 10/06/22 19:58 Source: patient Mode of arrival: ambulatory Limitations: no limitations - History of Present Illness Initial comments: This 76-year-old male presents with complaint of some difficulty in breathing. He states that this is been for over 3 weeks. He was coughing quite a bit but not significantly over the past week. He denies any fevers or chills. There is been no chest pain. She was seen by primary care today for the difficulty in breathing. They thought that his heart rate was low and that he may have new- onset atrial fibrillation so sent him for further evaluation here this is as per patient and . He does complain of lower extremity edema worse on the right leg but does relate having a vascular procedure for varicose veins done 6 months ago by vascular surgeon out of [facility]. He's had swelling to his legs since then but it seems somewhat worse recently. He has exertional d yspnea. He denies any orthopnea. There is no history of congestive heart failure although he did have a history of a coronary artery bypass graft 14 years ago. 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 He does have a history of pulmonary nodules but otherwise denies any COPD or asthma. No other identifiable complaints or modifying factors. - Related Data Home Medications Medication Instructions Recorded Confirmed ALPRAZolam [Xanax] 0.5 mg PO BID PRN 04/11/17 10/06/22 Enalapril Maleate [Vasotec] 20 mg PO BID 04/11/17 10/06/22 Fenofibrate [Lofibra] 160 mg PO DAILY 04/11/17 10/06/22 Testosterone [Androgel 1.62% Gel 3 pump TOPICAL DAILY 04/11/17 10/06/22 Pump] Omeprazole [PriLOSEC] 20 mg PO DAILY PRN 02/22/19 10/06/22 Metoprolol Succinate (ER) [Toprol 50 mg PO HS 10/06/22 10/06/22 Xl] Niacin [Niacin ER] 500 mg PO HS 10/06/22 10/06/22 Pravastatin Sodium [Pravachol] 80 mg PO DAILY 10/06/22 10/06/22 Tamsulosin [Flomax] 0.4 mg PO HS 10/06/22 10/06/22 Vortioxetine Hydrobromide 10 mg PO HS 10/06/22 10/06/22 [Trintellix] amLODIPine [Norvasc] 10 mg PO HS 10/06/22 10/06/22 rOPINIRole HCL [Requip] 1 mg PO HS 10/06/22 10/06/22 traZODone HCL 100 mg PO HS 10/06/22 10/06/22 Allergies Allergy/AdvReac Type Severity Reaction Status Date / Time No Known Allergies Allergy Verified 10/06/22 22:29 Review of Systems ROS Statement: Those systems with pertinent positive or pertinent negative responses have been documented in the HPI. ROS Other: All systems not noted in ROS Statement are negative. Past Medical History Past Medical History: Coronary Artery Disease (CAD), GERD/Reflux, Hyperlipidemia, Hypertension, Sleep Apnea/CPAP/BIPAP Additional Past Medical History / Comment(s): varicose veins,uses cpap History of Any Multi-Drug Resistant Organisms: None Reported Past Surgical History: Coronary Bypass/CABG, Heart Catheterization Additional Past Surgical History / Comment(s): triple bypass 2007,partial thyroidectomy at age 18, foot surg. Past Anesthesia/Blood Transfusion Reactions: No Reported Reaction Past Psychological History: Anxiety, Depression Smoking Status: Never smoker Past Alcohol Use History: None Reported Past Drug Use History: None Reported - Past Family History Mother Family Medical History: Hypertension, Osteoarthritis (OA) Father Family Medical History: Congestive Heart Failure (CHF), Coronary Artery Disease (CAD), Hypertension Additional Family Medical History / Comment(s): CABG Brother(s) Family Medical History: Cancer Additional Family Medical History / Comment(s): colon General Exam - General Exam Comments Initial Comments: GENERAL: The patient is well nourished and well hydrated. VITAL SIGNS: Heart rate, blood pressure, respiratory rate reviewed as recorded in nurse's notes. EYES: Pupils are round and reactive. Extraocular movements are intact. No conjunctival / lid redness or swelling. ENT: No external evidence of injury, swelling, or ecchymosis. Airway is patent. Throat is clear. NECK: Nontender. No swelling or evidence of injury. No subcutaneous emphysema. Trachea is midline. No thyroid mass. HEART: Regular rate and rhythm. Good peripheral pulses. LUNGS/CHEST: Breath sounds clear and equal bilaterally. No rales, rhonchi, or wheezes. No ecchymosis, subcutaneous emphysema, or tenderness. ABDOMEN: Abdomen soft without tenderness. No palpable masses or organomegaly. No peritoneal signs. No abdominal wall swelling or ecchymosis. EXTREMITIES: No extremity tenderness. Normal muscle tone and function. No thoracolumbar tenderness. There is some moderate swelling noted to the right lower extremity with only slight swelling noted to the left lower extremity both from the knee down. NEUROLOGIC: Sensation is grossly intact. Cranial nerve exam reveals face is symmetrical, tongue is midline, speech is clear. SKIN: No abrasions or ecchymosis is noted. No induration or masses noted. PSYCHIATRIC: Alert and oriented. Appropriate behavior and judgment. Limitations: no limitations Course Vital Signs 10/06/22 10/06/22 17:55 21:43 Temperature 98.2 F Pulse Rate 54 L 60 Respiratory 20 18 Rate Blood Pressure 180/87 170/97 O2 Sat by Pulse 97 97 Oximetry Medical Decision Making - Medical Decision Making The patient was seen and examined. All diagnostics were reviewed. EKG shows a sinus bradycardia at a rate of 53. There is evidence of a right bundle-branch block with associated ST-T wave changes noted. No ST elevation identified. No evidence of atrial fibrillation. The ID interval is 297, QRS duration is 169, and QTC intervals 457. The patient had a chest x-ray done and this shows bilateral infiltrates potentially related to atypical pneumonia. Laboratory ca me back showing a slight increase in the creatinine at 1.3. The viral swabs are negative. The chest x-ray is interpreted by myself. The patient receives a DuoNeb breathing treatment. Blood cultures are pending. Zithromax and Rocephin are given intravenously. It is felt as though he benefit from admission to the hospital. Patient is agreeable with this plan. He will be placed under observation admission. Case is discussed with Dr. Taylor and he is agreeable with admission. - Lab Data Result diagrams: 10/06/22 18:13 10/06/22 18:13 Lab Results 10/06/22 10/06/22 10/06/22 Range/Units 18:13 18:13 18:13 WBC 5.4 (3.8-10.6) k/uL RBC 4.77 (4.30-5.90) m/uL Hgb 14.0 (13.0-17.5) gm/dL Hct 40.9 (39.0-53.0) % MCV 85.8 (80.0-100.0) fL MCH 29.3 (25.0-35.0) pg MCHC 34.1 (31.0-37.0) g/dL RDW 13.6 (11.5-15.5) % Plt Count 198 (150-450) k/uL MPV 8.6 Neutrophils % 65 % Lymphocytes % 15 % Monocytes % 9 % Eosinophils % 7 % Basophils % 1 % Neutrophils # 3.5 (1.3-7.7) k/uL Lymphocytes # 0.8 L (1.0-4.8) k/uL Monocytes # 0.5 (0-1.0) k/uL Eosinophils # 0.4 (0-0.7) k/uL Basophils # 0.0 (0-0.2) k/uL PT 11.3 (9.0-12.0) sec INR 1.1 (<1.2) APTT 25.0 (22.0-30.0) sec Sodium 141 (137-145) mmol/L Potassium 4.0 (3.5-5.1) mmol/L Chloride 110 H (98-107) mmol/L Carbon Dioxide 23 (22-30) mmol/L Anion Gap 8 mmol/L BUN 23 H (9-20) mg/dL Creatinine 1.30 H (0.66-1.25) mg/dL Est GFR (CKD-EPI)AfAm 62 (>60 ml/min/1.73 sqM) Est GFR (CKD-EPI)NonAf 54 (>60 ml/min/1.73 sqM) Glucose 95 (74-99) mg/dL Calcium 9.2 (8.4-10.2) mg/dL Magnesium 2.0 (1.6-2.3) mg/dL Total Bilirubin 0.5 (0.2-1.3) mg/dL AST 37 (17-59) U/L ALT 25 (4-49) U/L Alkaline Phosphatase 71 (38-126) U/L Troponin I (0.000-0.034) ng/mL Total Protein 7.6 (6.3-8.2) g/dL Albumin 4.4 (3.5-5.0) g/dL Influenza Type A (PCR) (Not Detectd) Influenza Type B (PCR) (Not Detectd) RSV (PCR) (Not Detectd) SARS-CoV-2 (PCR) (Not Detectd) 10/06/22 10/06/22 Range/Units 18:13 21:05 WBC (3.8-10.6) k/uL RBC (4.30-5.90) m/uL Hgb (13.0-17.5) gm/dL Hct (39.0-53.0) % MCV (80.0-100.0) fL MCH (25.0-35.0) pg MCHC (31.0-37.0) g/dL RDW (11.5-15.5) % Plt Count (150-450) k/uL MPV Neutrophils % % Lymphocytes % % Monocytes % % Eosinophils % % Basophils % % Neutrophils # (1.3-7.7) k/uL Lymphocytes # (1.0-4.8) k/uL Monocytes # (0-1.0) k/uL Eosinophils # (0-0.7) k/uL Basophils # (0-0.2) k/uL PT (9.0-12.0) sec INR (<1.2) APTT (22.0-30.0) sec Sodium (137-145) mmol/L Potassium (3.5-5.1) mmol/L Chloride (98-107) mmol/L Carbon Dioxide (22-30) mmol/L Anion Gap mmol/L BUN (9-20) mg/dL Creatinine (0.66-1.25) mg/dL Est GFR (CKD-EPI)AfAm (>60 ml/min/1.73 sqM) Est GFR (CKD-EPI)NonAf (>60 ml/min/1.73 sqM) Glucose (74-99) mg/dL Calcium (8.4-10.2) mg/dL Magnesium (1.6-2.3) mg/dL Total Bilirubin (0.2-1.3) mg/dL AST (17-59) U/L ALT (4-49) U/L Alkaline Phosphatase (38-126) U/L Troponin I <0.012 (0.000-0.034) ng/mL Total Protein (6.3-8.2) g/dL Albumin (3.5-5.0) g/dL Influenza Type A (PCR) Not Detected (Not Detectd) Influenza Type B (PCR) Not Detected (Not Detectd) RSV (PCR) Not Detected (Not Detectd) SARS-CoV-2 (PCR) Not Detected (Not Detectd) Disposition Clinical Impression: Dyspnea, Pneumonia, Right leg swelling Disposition: ADMITTED IP TO THIS [facility] Condition: Fair Is patient prescribed a controlled substance at d/c from ED?: No Time of Disposition: 22:58 Decision Date: 10/06/22 Decision Time: 22:58
[2022-10-06] MEDS ORDERED: ACETAMINOPHEN TAB 325 MG TAB PO PRN (23:26)
[2022-10-06] MEDS ORDERED: PNEUMONIA PROTOCOL UTILIZED 1 EACH MISC PO PRN (23:26)
[2022-10-07] MEDS ORDERED: traZODone HCL 100 MG TAB PO STA (02:18)
--- NOTE | 2022-10-07 03:57 | P.HPIM ---
History of Present Illness H&P Date: 10/06/22 Chief Complaint: SOB 76 year old male with CAD s/p CABG patient coming in wit complaint of progressive SOB , described as exertional dyspnea with very mild exertion, He reports that this is unusual for him as he is used to walking long distances without limitations, but his dyspnea has been progressive over the past 3 weeks .denies any cough , fever, chills, hemoptysis , weight loss, leg edema out of the ordinary (which he gets right leg edema due to history of varicose veins stripping). denies any sick contacts, recent travel of hospital stay, denies any history of blood clots. he saw his PCP who recommended he comes to the hospital for evaluation to rule out afib patient denies any tobacco smoking, illicit drugs or heavy alcohol consumption workup in the ED , blood work unremarkable , CXR suggestive of atypical pneumonia Review of Systems Pertinent positives as noted in HPI. All other systems were reviewed and are negative Past Medical History Past Medical History: Coronary Artery Disease (CAD), GERD/Reflux, Hyperlipidemia, Hypertension, Sleep Apnea/CPAP/BIPAP Additional Past Medical History / Comment(s): varicose veins,uses cpap History of Any Multi-Drug Resistant Organisms: None Reported Past Surgical History: Coronary Bypass/CABG, Heart Catheterization Additional Past Surgical History / Comment(s): triple bypass 2007,partial thyroidectomy at age 18, foot surg. Past Anesthesia/Blood Transfusion Reactions: No Reported Reaction Past Psychological History: Anxiety, Depression Smoking Status: Never smoker Past Alcohol Use History: None Reported Past Drug Use History: None Reported - Past Family History Mother Family Medical History: Hypertension, Osteoarthritis (OA) Father Family Medical History: Congestive Heart Failure (CHF), Coronary Artery Disease (CAD), Hypertension Additional Family Medical History / Comment(s): CABG Brother(s) Family Medical History: Cancer Additional Family Medical History / Comment(s): colon Medications and Allergies Home Medications Medication Instructions Recorded Confirmed Type RX: ALPRAZolam [Xanax] 0.5 mg PO BID PRN 04/11/17 10/06/22 History RX: Enalapril Maleate [Vasotec] 20 mg PO BID 04/11/17 10/06/22 History RX: Fenofibrate [Lofibra] 160 mg PO DAILY 04/11/17 10/06/22 History RX: Testosterone [Androgel 1.62% 3 pump TOPICAL DAILY 04/11/17 10/06/22 History Gel Pump] Omeprazole [PriLOSEC] 20 mg PO DAILY PRN 02/22/19 10/06/22 History Metoprolol Succinate (ER) [Toprol 50 mg PO HS 10/06/22 10/06/22 History Xl] Niacin [Niacin ER] 500 mg PO HS 10/06/22 10/06/22 History Pravastatin Sodium [Pravachol] 80 mg PO DAILY 10/06/22 10/06/22 History RX: traZODone HCL 100 mg PO HS 10/06/22 10/06/22 History Tamsulosin [Flomax] 0.4 mg PO HS 10/06/22 10/06/22 History Vortioxetine Hydrobromide 10 mg PO HS 10/06/22 10/06/22 History [Trintellix] amLODIPine [Norvasc] 10 mg PO HS 10/06/22 10/06/22 History rOPINIRole HCL [Requip] 1 mg PO HS 10/06/22 10/06/22 History Allergies Allergy/AdvReac Type Severity Reaction Status Date / Time No Known Allergies Allergy Verified 10/06/22 22:29 Physical Exam Vitals: Vital Signs Temp Pulse Resp BP Pulse Ox 10/06/22 21:43 60 18 170/97 97 10/06/22 17:55 98.2 F 54 L 20 180/87 97 Intake and Output 10/06/22 10/06/22 10/07/22 14:59 22:59 06:59 Other: Weight 113.398 kg Constitutional: No acute distress, conversant, pleasant Eyes: Anicteric sclerae, moist conjunctiva, Pupils equal round reactive to light ENMT: NC/AT Oropharynx clear, no erythema, or exudates Neck: Supple, no masses, or JVD No carotid bruits No thyromegaly Lungs: Clear to auscultation Clear to percussion Normal respiratory effort, no accessory muscle use Cardiovascular: Heart regular in rate and rhythm, No murmurs, gallops, or rubs right leg edema Abdominal: Soft Nontender, no guarding, rebound or rigidity Abdomen moving with respiration Normoactive bowel sounds No hepatomegaly, No splenomegaly No palpable mass No abdominal wall hernia noted Skin: Normal temperature, tone, texture, turgor No induration No subcutaneous nodules No rash, lesions No ulcers Extremities: No digital cyanosis No clubbing Pedal pulses intact and symmetrical Radial pulses intact and symmetrical No calf tenderness Psychiatric: Alert and oriented to person, place and time Appropriate affect fair judgement Neuro Muscles Strength 5/5 in all 4 extremities Sensation to light touch grossly present throughout Cranial nerves II-XII grossly intact Lymphatics: no palpable cervical or supraclavicular lymph nodes Results CBC & Chem 7: 10/06/22 18:13 10/06/22 18:13 Labs: Abnormal Lab Results - Last 24 Hours (Table) 10/06/22 10/06/22 Range/Units 18:13 18:13 Lymphocytes # 0.8 L (1.0-4.8) k/uL Chloride 110 H (98-107) mmol/L BUN 23 H (9-20) mg/dL Creatinine 1.30 H (0.66-1.25) mg/dL Assessment and Plan Assessment: community acquired pneumonia follow up cultures initiated on antibiotics with azithro and rocephine tylenol for fever, supportive care urine legionella antigen acute respiratory viral panel negative check echo cardiogram to assess LVEF chronic conditions CAD s/p CABG hypertension hyperlipidemia resume home meds DVT PPX lovenox full code
[2022-10-07] MEDS: ALPRAZolam 0.5 MG TAB PO PRN ×2 (03:59→17:53)
[2022-10-07] MEDS: IPRATROPIUM-ALBUTEROL 3 ML NEB INHALATION SCH ×4 (09:22→20:54)
[2022-10-07] MEDS: TESTOSTERONE TOPICAL SCH (09:38)
[2022-10-07] MEDS: FENOFIBRATE 160 MG TAB PO SCH (09:43)
[2022-10-07] MEDS: lisinopriL 20 MG TAB PO SCH ×2 (09:43→20:05)
[2022-10-07] MEDS: ENOXAPARIN 40 MG/0.4 ML SYRINGE SQ SCH (09:43)
[2022-10-07] MEDS: PRAVASTATIN SODIUM 80 MG TAB PO SCH (09:44)
--- NOTE | 2022-10-07 11:41 | P.PN ---
Subjective Progress Note Date: 10/07/22 Patient stated that his breathing has been improving since admission. Patient was lying comfortably in bed. He is denying any fever chills nausea vomiting. Patient also denying any PND or orthopnea. Objective - Vital Signs Vital signs: Vital Signs Temp 97.7 F 10/07/22 08:00 Pulse 64 10/07/22 09:36 Resp 18 10/07/22 08:00 BP 155/87 10/07/22 08:00 Pulse Ox 90 L 10/07/22 08:00 FiO2 Intake & Output 10/06/22 10/07/22 10/07/22 18:59 06:59 18:59 Weight 113.398 kg 113.398 kg Other: Voiding Method Toilet # Voids 1 - Exam General examination - Alert and Oriented 3 in NAD Heart - + S1S2 no murmurs Lungs - Clear to auscultation Abdomen soft NT ND +ve BS Extremities - +2 pitting edema bilateral lower extremities C[employer]ER - Moving all 4 extremities spontaneously Psych - Calm and cooperative - Labs CBC & Chem 7: 10/06/22 18:13 10/06/22 18:13 Labs: Abnormal Lab Results - Last 24 Hours (Table) 10/06/22 10/06/22 Range/Units 18:13 18:13 Lymphocytes # 0.8 L (1.0-4.8) k/uL Chloride 110 H (98-107) mmol/L BUN 23 H (9-20) mg/dL Creatinine 1.30 H (0.66-1.25) mg/dL Assessment and Plan Assessment: Community-acquired pneumonia Follow up on blood cultures Continue azithromycin and Rocephin Follow up on final read of the CTA chest Pulmonology consult Check echocardiogram to rule out any other etiology for his shortness of breath Acute on Chronic lower extremity edema Doubt heart failure since patient denies any orthopnea We'll check echocardiogram to rule out heart failure Coronary artery disease status post CABG Resume statin Hypertension Resume amlodipine and lisinopril and metoprolol Hyperlipidemia Resume statin DVT prophylaxis: Lovenox
[2022-10-07] MEDS: AZITHROMYCIN 500 MG in SODIUM CHLORIDE 0.9% 250 ML IVPB SCH (11:49)
--- NOTE | 2022-10-07 11:49 | CT ---
EXAMINATION TYPE: CT angio chest CT DLP: 618.3 mGycm, Automated exposure control for dose reduction was used. DATE OF EXAM: 10/07/2022 11:28 AM COMPARISON: Chest radiograph from one day prior CLINICAL INDICATION:Male, 76 years old with history of dyspnea; TECHNIQUE/CONTRAST: CTA scan of the thorax is performed with IV Contrast, patient injected with 80 mL of Isovue 370, pulm onary embolism protocol. MIP images are created and reviewed. FINDINGS: Pulmonary Artery: There is no evidence for a filling defect within the pulmonary vasculature to sugge st acute pulmonary embolism. The pulmonary artery is of normal size. Lungs/Pleura: No evidence of focal consolidation or pneumothorax. Intralobular septal thickening. The re is trace bilateral pleural effusions. Airway: Large airways are patent. Heart: The heart is mildly enlarged for size there is coronary artery atherosclerosis. Vasculature: No evidence of aortic aneurysm. 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 There is reflux of contrast into the IVC. Mediastinum: No gross evidence of adenopathy. Musculoskeletal: No acute osseous abnormalities Soft Tissues: Unremarkable. Lower neck: No significant findings. Upper Abdomen: No significant findings. IMPRESSION: 1. No evidence of pulmonary embolism. 2. Cardiomegaly, trace bilateral pleural effusions and pulmonary vascular congestion. Correlate with serum BNP. 3. 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
[2022-10-07] MEDS: PANTOPRAZOLE 40 MG TABLET PO PRN (11:56)
[2022-10-07] MEDS: CALCIUM CARBONATE 500 MG CHEWABLE PO PRN ×2 (12:14→17:53)
--- NOTE | 2022-10-07 14:52 | P.CNPUL ---
History of Present Illness Consult date: 10/07/22 Reason for consult: dyspnea History of present illness: This is a 76-year-old male patient with known history of coronary disease, crit his left eye surgery and the patient is known to have obstructive sleep apnea, hypertension hyperlipidemia and previous history of known pulmonary nodules, subcentimeter which are felt to be benign and there'll be followed up on outpatient basis. I saw the patient my office approximately in April 2022 and e patient back and was doing well and recommended a follow-up CAT scan of the chest in one year's time. The patient is coming in with worsening shortness of breath. The patient is quite active and he typically walks 3-4 miles on a daily basis. Recently, he noticed that he has been getting short of breath with activity. He is unable to walk long distances as he used to. No angina. No palpitation. No diaphoresis. No sweating. No cough. No sputum production. No pleurisy. No hemoptysis. No fever. No chills. No swelling lower extremities. No history of any DVTs and no history of pulmonary embolism. Is a nonsmoker. He has undergone a recent cardiac evaluation including an echocar diogram and a stress test through [facility] and has been told to have no ischemia. The patient is currently hospitalized for a diagnosis of "pneumonia", and the patient was started on broad-spectrum antibiotics. Note that he has no leukocytosis. His influenza screen, Covid 19 screen, and RSV screen were all negative. The d-dimer is at 1.23. CT angiogram was done and it showed cardiomegaly and pulmonary vessel congestion. No evidence of any pulmonary embolism. No evidence of pneumonia. No consolidation with air space disease. His proBNP level was 1380. The genitourinary antigen was negative. CAT scan also showed bilateral pleural effusion and combination with pulmonary vessel congestion and ascending aortic aneurysm measuring 4.2 cm in size. Review of Systems All systems: negative (Shortness of breath as discussed above) Constitutional: Denies chills, Denies fever Past Medical History Past Medical History: Coronary Artery Disease (CAD), GERD/Reflux, Hyperlipi demia, Hypertension, Sleep Apnea/CPAP/BIPAP Additional Past Medical History / Comment(s): varicose veins,uses cpap History of Any Multi-Drug Resistant Organisms: None Reported Past Surgical History: Coronary Bypass/CABG, Heart Catheterization Additional Past Surgical History / Comment(s): triple bypass 2007,partial thyroidectomy at age 18, foot surg. Past Anesthesia/Blood Transfusion Reactions: No Reported Reaction Past Psychological History: Anxiety, Depression Smoking Status: Never smoker Past Alcohol Use History: None Reported Past Drug Use History: None Reported - Past Family History Mother Family Medical History: Hypertension, Osteoarthritis (OA) Father Family Medical History: Congestive Heart Failure (CHF), Coronary Artery Disease (CAD), Hypertension Additional Family Medical History / Comment(s): CABG Brother(s) Family Medical History: Cancer Additional Family Medical History / Comment(s): colon Medications and Allergies Home Medications Medication Instructions Recorded Confirmed Type ALPRAZolam [Xanax] 0.5 mg PO BID PRN 04/11/17 10/06/22 History Enalapril Maleate [Vasotec] 20 mg PO BID 04/11/17 10/06/22 History Fenofibrate [Lofibra] 160 mg PO DAILY 04/11/17 10/06/22 History Testosterone [Androgel 1.62% Gel 3 pump TOPICAL DAILY 04/11/17 10/06/22 History Pump] Omeprazole [PriLOSEC] 20 mg PO DAILY PRN 02/22/19 10/06/22 History Metoprolol Succinate (ER) [Toprol 50 mg PO HS 10/06/22 10/06/22 History Xl] Niacin [Niacin ER] 500 mg PO HS 10/06/22 10/06/22 History Pravastatin Sodium [Pravachol] 80 mg PO DAILY 10/06/22 10/06/22 History Tamsulosin [Flomax] 0.4 mg PO HS 10/06/22 10/06/22 History Vortioxetine Hydrobromide 10 mg PO HS 10/06/22 10/06/22 History [Trintellix] amLODIPine [Norvasc] 10 mg PO HS 10/06/22 10/06/22 History rOPINIRole HCL [Requip] 1 mg PO HS 10/06/22 10/06/22 History traZODone HCL 100 mg PO HS 10/06/22 10/06/22 History Allergies Allergy/AdvReac Type Severity Reaction Status Date / Time No Known Allergies Allergy Verified 10/06/22 22:29 Physical Exam Vitals: Vital Signs Temp Pulse Pulse Resp BP BP Pulse Ox 10/07/22 14:00 98.9 F 74 18 139/77 96 10/07/22 12:34 68 10/07/22 12:22 68 10/07/22 09:36 64 10/07/22 09:27 64 10/07/22 08:00 97.7 F 64 18 155/87 90 L 10/07/22 01:11 98.8 F 59 L 17 158/86 98 10/07/22 00:00 67 18 160/88 97 10/06/22 23:46 68 10/06/22 23:30 64 10/06/22 21:43 60 18 170/97 97 10/06/22 17:55 98.2 F 54 L 20 180/87 97 Intake and Output 10/06/22 10/07/22 10/07/22 22:59 06:59 14:59 Other: Voiding Method Toilet # Voids 1 1 Weight 113.398 kg 113.398 kg The patient appeared well nourished and normally developed. Vital signs as documented. Head exam is unremarkable. No scleral icterus or corneal arcus noted. Neck is without jugular venous distension, thyromegaly, or carotid bruits. Carotid upstrokes are brisk bilaterally. Lungs are clear to auscultation and percussion. The patient is a thoracotomy scar over the anterior chest area. Cardiac exam reveals the PMI to be normally sized and situated. Rhythm is regular. First and second heart sounds normal. No murmurs, rubs or gallops. Abdominal exam reveals normal bowel sounds, no masses, no organomegaly and no aortic enlargement. Extremities are nonedematous and both femoral and pedal pulses are normal. Examination of the skin revealed no evidence of significant rashes, suspicious appearing nevi or other concerning lesions.Neurologically, the patient is awake and alert and the patient does not have any focal neurological deficit. Cranial nerves are essentially intact. Results - Laboratory Findings CBC and BMP: 10/06/22 18:13 10/06/22 18:13 PT/INR, D-dimer PT 11.3 sec (9.0-12.0) 10/06/22 18:13 INR 1.1 (<1.2) 10/06/22 18:13 D-Dimer 1.23 mg/L FEU (<0.60) H 10/07/22 12:14 Abnormal lab findings: Abnormal Labs 10/06/22 10/06/22 10/07/22 18:13 18:13 12:14 Lymphocytes # 0.8 L D-Dimer 1.23 H Chloride 110 H BUN 23 H Creatinine 1.30 H - Diagnostic Findings Chest x-ray: image reviewed CT scan - chest: image reviewed Assessment and Plan Plan: Exertional dyspnea, currently under investigation. No evidence of pneumonia. No evidence of any chronic lung disease. Consider possibility of mild CHF with elevated proBNP level and a CT angiogram of the chest indicating the pleural effusion and pulmonary vascular congestion. No significant hypoxemia. No angina. Troponins are negative. Coronary artery disease with previous bypass surgery Obstructive sleep apnea maintained on CPAP therapy. Subcentimeter pulmonary nodules, benign and unchanged and repeated CAT scans BPH Hypertension Hyperlipidemia Ascending thoracic aortic aneurysm measuring 4.2 cm in size Chronic stage III kidney disease Plan Antibiotics can be discontinued Consider diuretics Cardiology evaluation Resume all medications Adequate oxygenation Will follow
[2022-10-07] MEDS ORDERED: FUROSEMIDE 10 MG/ML 4 ML VIAL IV STA (16:28)
--- NOTE | 2022-10-07 17:37 | CA ---
Transthoracic Echo Report Name: Ankit Corcoran Age: 76 Gender: M : 1945 Exam Date: 10/07/2022 13:51 Exam Location: [facility] Ht (in): 74 Wt (lb): 250 Ordering Physician: Juan Taylor MD Attending/Referring Phys: [id number], Claudia Program Analyst Neeru Chamberlain RDCS Procedure CPT: Indications: exertional dyspnea Cardiac Hx: Technical Quality: Fair Contrast 1: Total Dose (mL): Contrast 2: Total Dose (mL): MEASUREMENTS (Male / Female) Normal Values 2D ECHO LV Diastolic Diameter PLAX 4.8 cm 4.2 - 5.9 / 3.9 - 5.3 cm LV Systolic Diameter PLAX 3.7 cm IVS Diastolic Thickness 1.2 cm 0.6 - 1.0 / 0.6 - 0.9 cm LVPW Diastolic Thickness 1.2 cm 0.6 - 1.0 / 0.6 - 0.9 cm LV Relative Wall Thickness 0.5 RV Internal Dim ED PLAX 3.2 cm LA Volume 80.0 cm??? 18 - 58 / 22 - 52 cm??? M-MODE Aortic Root Diameter MM 2.9 cm LA Systolic Diameter MM 5.4 cm LA Ao Ratio MM 1.9 AV Cusp Separation MM 1.9 cm DOPPLER AV Peak Velocity 163.2 cm/s AV Peak Gradient 10.6 mmHg AI Peak Velocity 445.3 cm/s AI Peak Gradient 79.3 mmHg AI Pressure Half Time 613.6 ms LVOT Peak Velocity 105.7 cm/s LVOT Peak Gradient 4.5 mmHg MV Area PHT 5.7 cm??? Mitral E Point Velocity 108.9 cm/s Mitral A Point Velocity 57.8 cm/s Mitral E to A Ratio 1.9 MV Deceleration Time 132.8 ms MV E' Velocity 7.4 cm/s Mitral E to MV E' Ratio 14.6 TR Peak Velocity 277.5 cm/s TR Peak Gradient 30.8 mmHg Right Ventricular Systolic Press 35.5 mmHg FINDINGS Left Ventricle Mildly increased left ventricular wall thickness. Abnormal (paradoxical) septal motion consistent with postoperative state. Left ventricular ejection fraction is estimated at 45-50 %. Right Ventricle Normal right ventricular size and function. Mild pulmonary hypertension. Right Atrium Mild right atrial dilatation. Left Atrium Severely increased left atrial volume. Mitral Valve Akgk-[id number] mitral regurgitation. Aortic Valve Mild aortic regurgitation. No aortic stenosis. Tricuspid Valve Mild tricuspid regurgitation. Pulmonic Valve Trace pulmonic regurgitation. Pericardium No pericardial effusion. Aorta Normal size aortic root and proximal ascending aorta. CONCLUSIONS Mild LV systolic dysfunction Mild to moderate mitral regurgitation Mild aortic regurgitation Left atrial enlargement Mild pulmonary hypertension Previewed by: Dr. Vipin Riddle MD (Electronically Signed) Final Date: 07 October 2022 17:36
[2022-10-07] MEDS ORDERED: METOPROLOL SUCCINATE (ER) 50 MG TAB.ER.24H PO SCH (21:00)
[2022-10-07] MEDS ORDERED: VORTIOXETINE HYDROBROMIDE 10 MG TABLET PO SCH (21:00)
[2022-10-07] MEDS ORDERED: amLODIPine 10 MG TAB PO SCH (21:00)
[2022-10-07] MEDS ORDERED: NIACIN TR 250 MG CAPSULE.ER PO SCH (21:00)
[2022-10-07] MEDS ORDERED: traZODone HCL 100 MG TAB PO SCH (21:00)
[2022-10-07] MEDS ORDERED: TAMSULOSIN 0.4 MG CAP.ER.24H PO SCH (21:00)
[2022-10-08] MEDS: TESTOSTERONE TOPICAL SCH (07:06)
[2022-10-08] MEDS: CALCIUM CARBONATE 500 MG CHEWABLE PO PRN (07:08)
[2022-10-08] MEDS: lisinopriL 20 MG TAB PO SCH (07:41)
[2022-10-08] MEDS: FENOFIBRATE 160 MG TAB PO SCH (07:41)
[2022-10-08] MEDS: ENOXAPARIN 40 MG/0.4 ML SYRINGE SQ SCH (07:41)
[2022-10-08] MEDS: AZITHROMYCIN 500 MG in SODIUM CHLORIDE 0.9% 250 ML IVPB SCH (07:41)
[2022-10-08] MEDS: ALPRAZolam 0.5 MG TAB PO PRN (07:44)
[2022-10-08] MEDS: PRAVASTATIN SODIUM 80 MG TAB PO SCH (07:50)
[2022-10-08] MEDS: PANTOPRAZOLE 40 MG TABLET PO PRN (07:50)
[2022-10-08 08:14] VITALS: BP 133/79; RESP 17; TEMP 97.5
[2022-10-08] MEDS ORDERED: FUROSEMIDE 10 MG/ML 2 ML VIAL IV STA (09:31)
[2022-10-08] MEDS: IPRATROPIUM-ALBUTEROL 3 ML NEB INHALATION SCH ×2 (09:35→12:44)
[2022-10-08 10:12] LABS: African American GFR (CKD) 56 (>60 ml/min/1.73 sqM); Anion Gap 9 mmol/L; Blood Urea Nitrogen 22 mg/dL (9-20); Calcium 8.9 mg/dL (8.4-10.2); Carbon Dioxide 25 mmol/L (22-30); Chloride 106 mmol/L (98-107); Glucose 102 mg/dL (74-99); Non-African American GFR(CKD) 48 (>60 ml/min/1.73 sqM); Potassium 4.2 mmol/L (3.5-5.1); Sodium 140 mmol/L (137-145)
[2022-10-08 12:54] VITALS: PULSE 60
--- NOTE | 2022-10-08 14:12 | P.PN ---
Subjective Progress Note Date: 10/08/22 This is a 76-year-old male patient with known history of coronary disease, crit his left eye surgery and the patient is known to have obstructive sleep apnea, hypertension hyperlipidemia and previous history of known pulmonary nodules, subcentimeter which are felt to be benign and there'll be followed up on outpatient basis. I saw the patient my office approximately in April 2022 and the patient back and was doing well and recommended a follow-up CAT scan of the chest in one year's time. The patient is coming in with worsening shortness of breath. The patient is quite active and he typically walks 3-4 miles on a daily basis. Recently, he noticed that he has been getting short of breath with activity. He is unable to walk long distances as he used to. No angina. No palpitation. No diaphoresis. No sweating. No cough. No sputum production. No pleurisy. No hemoptysis. No fever. No chills. No swelling lower extremities. No history of any DVTs and no history of pulmonary embolism. Is a nonsmoker. He has undergone a recent cardiac evaluation including an echocardiogram and a stress test through [facility] and has been told to have no ischemia. The patient is currently hospitalized for a diagnosis of "pneumonia", and the patient was started on broad-spectrum antibiotics. Note that he has no leukocytosis. His influenza screen, Covid 19 screen, and RSV screen were all negative. The d-dimer is at 1.23. CT angiogram was done and it showed cardiomegaly and pulmonary vessel congestion. No evidence of any pulmonary embolism. No evidence of pneumonia. No consolidation with air space disease. His proBNP level was 1380. The genitourinary antigen was negative. CAT scan also showed bilateral pleural effusion and combination with pulmonary vessel congestion and ascending aortic aneurysm measuring 4.2 cm in size. On today's evaluation of 10/08/2022, no new complaints and the patient is doing well. The patient is ambulating. He was given a dose of Lasix with excellent urine output. The BUN is at 22 with a creatinine of 1.4 and sodium levels of 140. ProBNP level was 1380. Pro-calcitonin level was negative. Objective - Vital Signs Vital signs: Vital Signs Temp 97.5 F L 10/08/22 08:00 Pulse 60 10/08/22 12:54 Resp 17 10/08/22 08:00 BP 133/79 10/08/22 08:00 Pulse Ox 95 10/08/22 08:00 FiO2 21 10/08/22 03:01 Intake & Output 10/07/22 10/08/22 10/08/22 18:59 06:59 18:59 Other: Voiding Method Toilet # Voids 1 4 1 - Exam The patient appeared well nourished and normally developed. Vital signs as documented. Head exam is unremarkable. No scleral icterus or corneal arcus noted. Neck is without jugular venous distension, thyromegaly, or carotid brui ts. Carotid upstrokes are brisk bilaterally. Lungs are clear to auscultation and percussion. The patient is a thoracotomy scar over the anterior chest area. Cardiac exam reveals the PMI to be normally sized and situated. Rhythm is regular. First and second heart sounds normal. No murmurs, rubs or gallops. Abdominal exam reveals normal bowel sounds, no masses, no organomegaly and no aortic enlargement. Extremities are nonedematous and both femoral and pedal pulses are normal. Examination of the skin revealed no evidence of significant rashes, suspicious appearing nevi or other concerning lesions.Neurologically, the patient is awake and alert and the patient does not have any focal neurolog ical deficit. Cranial nerves are essentially intact. - Labs CBC & Chem 7: 10/06/22 18:13 10/08/22 09:52 Labs: Abnormal Lab Results - Last 24 Hours (Table) 10/08/22 Range/Units 09:52 BUN 22 H (9-20) mg/dL Creatinine 1.42 H (0.66-1.25) mg/dL Glucose 102 H (74-99) mg/dL Microbiology - Last 24 Hours (Table) 10/06/22 23:02 Blood Culture - Preliminary Blood No Growth after 24 hours 10/06/22 22:47 Blood Culture - Preliminary Blood No Growth after 24 hours Assessment and Plan Plan: Exertional dyspnea, currently under investigation. No evidence of pneumonia. No evidence of any chronic lung disease. Consider possibility of mild CHF with elevated proBNP level and a CT angiogram of the chest indicating the pleural effusion and pulmonary vascular congestion. No significant hypoxemia. No angina. Troponins are negative. Coronary artery disease with previous bypass surgery Obstructive sleep apnea maintained on CPAP therapy. Subcentimeter pulmonary nodules, benign and unchanged and repeated CAT scans BPH Hypertension Hyperlipidemia Ascending thoracic aortic aneurysm measuring 4.2 cm in size Chronic stage III kidney disease Plan Reassured on the results of the CAT scan Antibiotics stopped Lasix 40 mg by mouth daily Pro calcitonin level was low ProBNP level is mildly elevated Possible discharge today
--- NOTE | 2022-10-08 14:36 | P.DS ---
Providers Date of admission: 10/07/22 08:47 Attending physician: Juan Taylor MD Consults: 10/07/22 10:46 Consult Physician Routine Consulting Provider: Mc Valerio Consult Reason/Comments: pna, known pt Do you want consulting provider notified?: Yes Primary care physician: Robi Mauro [facility] Course: Discharge Diagnosis: Acute diastolic heart failure Pneumonia ruled out Sepsis ruled out Coronary artery disease status post CABG Hypertension Hyperlipidemia Hospital Course: 76 year old male with CAD s/p CABG presented to the ED with shortness of breath and worsening lower extremity edema. Patient initially had a chest x-ray done that showed bilateral consolidation consistent with atypical pneumonia. So patient was empirically started on antibiotics and referred for admission. The following day patient had a computed tomography scan of his chest that showed vascular congestion and small bilateral pleural effusions. His proBNP was also found to be elevated. Patient was then diagnosed with heart failure and started on diuretics. His echocardiogram showed an EF of 45-50%. This confirmed acute diastolic heart failure. Patient's pro-calcitonin was negative so antibiotics were discontinued. Patient was treated with IV diuretics. On the day of discharge patient reported that he is able to walk multiple laps on the floor. He states that when he came in he was only able to walk one lap. Patient was also satting well on room air at the time of discharge. Patient is looking forward to going home. Patient instructed to follow-up with his senior planner outpatient in 1-2 weeks. Patient was counseled on diet and fluid restriction. Patient was discharged on 40 mg Lasix and potassium chloride 10 mEq Patient seen and examined at bedside.[] Vital signs reviewed and stable. General: [non toxic], [no distress], [appears at stated age] Derm: [warm], [dry] Head: [atraumatic], [normocephalic], [symmetric] Eyes: [EOMI], [no lid lag], [anicteric sclera] Mouth: [no lip lesion], [mucus membranes moist] Cardiovascular: [S1S2 reg], [no murmur], [positive posterior tibial pulse bilateral], Lungs: [CTA bilateral], [no rhonchi, no rales] , [no accessory muscle use] Abdominal: [soft], [ nontender to palpation], [no guarding], [no appreciable organomegaly] Ext: [no gross muscle atrophy], +2 pitting edema bilateral lower extremities, [no contractures] Neuro: [ CN II-XI grossly intact], [no focal neuro deficits] Psych: [Alert], [oriented], [appropriate affect] A total of [33] minutes of time were spent preparing this complex discharge summary . Patient Condition at Discharge: Fair Plan - Discharge Summary New Discharge Prescriptions: New Potassium Chloride ER [K-Dur 10] 10 meq PO DAILY 30 Days #30 tab Furosemide [Lasix] 40 mg PO DAILY 30 Days #30 tab Continue Fenofibrate [Lofibra] 160 mg PO DAILY Testosterone [Androgel 1.62% Gel Pump] 3 pump TOPICAL DAILY Enalapril Maleate [Vasotec] 20 mg PO BID ALPRAZolam [Xanax] 0.5 mg PO BID PRN PRN Reason: Anxiety Omeprazole [PriLOSEC] 20 mg PO DAILY PRN PRN Reason: ACID REFLUX traZODone HCL 100 mg PO HS rOPINIRole HCL [Requip] 1 mg PO HS Tamsulosin [Flomax] 0.4 mg PO HS Niacin [Niacin ER] 500 mg PO HS amLODIPine [Norvasc] 10 mg PO HS Vortioxetine Hydrobromide [Trintellix] 10 mg PO HS Metoprolol Succinate (ER) [Toprol XL] 50 mg PO HS Pravastatin Sodium [Pravachol] 80 mg PO DAILY Discharge Medication List ALPRAZolam [Xanax] 0.5 mg PO BID PRN 04/11/17 [History] Enalapril Maleate [Vasotec] 20 mg PO BID 04/11/17 [History] Fenofibrate [Lofibra] 160 mg PO DAILY 04/11/17 [History] Testosterone [Androgel 1.62% Gel Pump] 3 pump TOPICAL DAILY 04/11/17 [History] Omeprazole [PriLOSEC] 20 mg PO DAILY PRN 02/22/19 [History] Metoprolol Succinate (ER) [Toprol XL] 50 mg PO HS 10/06/22 [History] Niacin [Niacin ER] 500 mg PO HS 10/06/22 [History] Pravastatin Sodium [Pravachol] 80 mg PO DAILY 10/06/22 [History] Tamsulosin [Flomax] 0.4 mg PO HS 10/06/22 [History] Vortioxetine Hydrobromide [Trintellix] 10 mg PO HS 10/06/22 [History] amLODIPine [Norvasc] 10 mg PO HS 10/06/22 [History] rOPINIRole HCL [Requip] 1 mg PO HS 10/06/22 [History] traZODone HCL 100 mg PO HS 10/06/22 [History] Furosemide [Lasix] 40 mg PO DAILY 30 Days #30 tab 10/08/22 [Rx] Potassium Chloride ER [K-Dur 10] 10 meq PO DAILY 30 Days #30 tab 10/08/22 [Rx] Follow up Appointment(s)/Referral(s): Vee Avina MD [STAFF PHYSICIAN] - 1 Week Robi Wade DO [Primary Care Provider] - 1-2 days Discharge Disposition: HOME SELF-CARE
[2022-10-09] MEDS ORDERED: FUROSEMIDE 40 MG TAB PO SCH (09:00)
== END 2022-10-08 15:23 | disposition home or self-care (01) | DRG 291 ==
LOC: EC 17:20 → 4SSUR 23:26 → OBSVTOIN 10-07 08:47
PROVIDERS: ADMIT Internal Medicine; ATTEND Internal Medicine
DX: I11.0 Hypertensive heart disease with heart failure (principal); I50.31 Acute diastolic (congestive) heart failure; I71.21 Aneurysm of the ascending aorta, without rupture; E78.5 Hyperlipidemia, unspecified; Z20.822 Contact with and (suspected) exposure to COVID-19; I25.10 Atherosclerotic heart disease of native coronary artery without angina pectoris; E89.0 Postprocedural hypothyroidism; I83.90 Asymptomatic varicose veins of unspecified lower extremity; I45.10 Unspecified right bundle-branch block; R00.1 Bradycardia, unspecified; K21.9 Gastro-esophageal reflux disease without esophagitis; G47.33 Obstructive sleep apnea (adult) (pediatric); F32.A Depression, unspecified; F41.9 Anxiety disorder, unspecified; R26.2 Difficulty in walking, not elsewhere classified; R91.8 Other nonspecific abnormal finding of lung field; Z79.899 Other long term (current) drug therapy; Z95.1 Presence of aortocoronary bypass graft; Z82.49 Family history of ischemic heart disease and other diseases of the circulatory system
CPT/HCPCS: 36415; 71046; 71275; 80048; 80053; 83735; 83880; 84145; 84443; 84484; 85025; 85379; 85610; 85730; 87040; 87449; 87636; 93005; 93306; 93970; 94640; 94660; 94760; 96365; 96375; 99285

== ENCOUNTER → 2023-01-12 | Outpatient (CLI) | payer MEDICARE | END | disposition home or self-care (01) | LOC: LABPAT 10:51 | PROVIDERS: ATTEND Orthopaedic Surgery | DX: Z01.812 Encounter for preprocedural laboratory examination (principal); M17.11 Unilateral primary osteoarthritis, right knee; Z22.322 Carrier or suspected carrier of Methicillin resistant Staphylococcus aureus | CPT/HCPCS: 87070 ==

== ENCOUNTER → 2023-06-02 | Outpatient (CLI) | payer MEDICARE ==
[2023-06-02 13:58] LABS: African American GFR (CKD) 31 (>60 ml/min/1.73 sqM); Blood Urea Nitrogen 67 mg/dL (9-20); Non-African American GFR(CKD) 27 (>60 ml/min/1.73 sqM)
--- NOTE | 2023-06-02 19:26 | CT ---
EXAMINATION TYPE: CT chest wo con DATE OF EXAM: 06/02/2023 COMPARISON: 10/07/2022 HISTORY: nodules CT DLP: 981 mGycm, Automated exposure control for dose reduction was used. CONTRAST: Performed injected with 0 mL of Isovue 300. TECHNIQUE: Axial images were obtained at 5 mm thick sections. Reconstructed images are reviewed on [employer] computer in the coronal plane. FINDINGS: There is fullness of the left lobe thyroid. Right lobe thyroid is poorly visualized. No suspicious lung nodules or focal infiltrates are present. No enlarged mediastinal or hilar adenopathy is evident. The ascending aorta diameter at the level o f the main pulmonary artery is 4.5 cm. The main pulmonary artery diameter at the bifurcation is 2.7 cm. Moderate coronary artery calcification is present. Limited CT sections are obtained through the upper abdomen. Abdomen is essentially unremarkable. IMPRESSIONS: 1. Ascending thoracic aortic aneurysm measuring 4.5 cm. 2. Fullness of the left lobe thyroid.
== END | disposition home or self-care (01) ==
LOC: RADCTMAIN 13:20
PROVIDERS: ATTEND Internal Medicine Critical Care Medicine
DX: I71.21 Aneurysm of the ascending aorta, without rupture (principal); R91.8 Other nonspecific abnormal finding of lung field
CPT/HCPCS: 71250; 82565; 84520